=== PATIENT | female | born 1960 | race Caucasian/White ===

== ENCOUNTER 2020-04-01 06:05 | Day surgery (SDC) | payer OTHER ==
[~2020-04-01 06:05] MED LIST: SODIUM CHLORIDE 0.9% 1,000 ML IV SCH
[2020-04-01] MEDS ORDERED: SODIUM CHLORIDE 0.9% 1,000 ML IV ONE (06:31)
[2020-04-01 06:47] LABS: Basophils # (A) 0.1 k/uL (0-0.2); Basophils % (A) 2 %; Eosinophils # (A) 0.3 k/uL (0-0.7); Eosinophils % (A) 6 %; HCT 38.8 % (34.0-46.0); HGB 12.6 gm/dL (11.4-16.0); Lymphocytes # (A) 2.1 k/uL (1.0-4.8); Lymphocytes % (A) 49 %; MCH 31.6 pg (25.0-35.0); MCHC 32.5 g/dL (31.0-37.0); MCV 97.4 fL (80.0-100.0); Mean Platelet Volume 8.6; Monocytes # (A) 0.2 k/uL (0-1.0); Monocytes % (A) 5 %; Neutrophils # (A) 1.5 k/uL (1.3-7.7); Neutrophils % (A) 35 %; Platelet Count 222 k/uL (150-450); RBC 3.99 m/uL (3.80-5.40); RDW 12.9 % (11.5-15.5); WBC 4.3 k/uL (3.8-10.6)
[2020-04-01 07:00] LABS: Calcium 9.6 mg/dL (8.4-10.2); Potassium 3.8 mmol/L (3.5-5.1)
[2020-04-01] MEDS ORDERED: ATROPINE SULFATE 0.1 MG/ML 10ML SYRINGE ONE (07:21)
[2020-04-01] MEDS ORDERED: MIDAZOLAM 2 MG/2 ML VIAL ONE (07:21)
[2020-04-01] MEDS ORDERED: fentaNYL (PF) 50 MCG/ML 2 ML AMP ONE (07:21)
[2020-04-01] MEDS ORDERED: LIDOCAINE 1% INJ 10MG/ML (20 ML MDV) ONE (07:41)
[2020-04-01] MEDS ORDERED: LIDOCAINE 1% INJ 10MG/ML (20 ML MDV) SQ ONE (08:01)
[2020-04-01] MEDS ORDERED: HEPARIN SODIUM (1,000 UNIT/ML) 1,000 UNIT in SODIUM CHLORIDE 0.9% 1,000 ML IRRIGATION ONE (08:08)
--- NOTE | 2020-04-01 10:23 | P.HPCAR ---
History of Present Illness This is Dr. 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 This morning on my assessment she was in a ventricular bigeminy HPI Patient with a long-standing history of palpitations. No syncope no chest discomfort Stress test did not show any evidence for reversible ischemia ROS: No fever chills or rigors, no cough, phlegm or expectoration, no nausea, vomiting or diarrhea, no hematuria, dysuria, no musculoskeletal complaints, no strokes or seizures, no skin lesions. EXAMINATION: Afebrile 98.6F pulse rate in the 60s blood pressure 140/78 mmHg Breath sounds are clear no rhonchi no crackles Normal heart sounds normal S1 normal S2 no murmurs no gallops no rub Abdomen is soft nontender Extremities warm no edema REVIEW OF LABS, ECG & MEDICAL DATA White count 4.3 thousand, hemoglobin 12.6, platelet count 222 thousand Normal electrolytes potassium 3.8 BUN 20 creatinine 0.9 Normal calcium Physical Exam Vitals: Vital Signs Temp Pulse Resp BP Pulse Ox 04/01/20 06:32 98.6 F 62 16 140/78 100 Intake and Output 03/31/20 04/01/20 04/01/20 22:59 06:59 14:59 Intake Total 20 854 Balance 20 854 Intake: IV 20 854 Other: Weight 61.1 kg Past Medical History Past Medical History: Hyperlipidemia, Osteoarthritis (OA), Sleep Apnea/CPAP/BIPAP, Thyroid Disorder Additional Past Medical History / Comment(s): SEE DR MICHELLE'S HISTORY AND PHY BENIGNO FOR CARDIAC HISTORY, 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 History of Any Multi-Drug Resistant Organisms: None Reported Past Surgical History: Back Surgery, Heart Catheterization Additional Past Surgical History / Comment(s): RIGHT ARTHROSCOPIC KNEE SURGERY, AMPUTATION RIGHT GREAT TOE, TOTAL RIGHT HIP , TOLTAL LEFT HIP, L4 L5 LAMINECTOMY, Past Anesthesia/Blood Transfusion Reactions: No Reported Reaction Smoking Status: Former smoker - Past Family History Mother Family Medical History: Cancer Additional Family Medical History / Comment(s): BREAST CANCER Sister(s) Family Medical History: Deep Vein Thrombosis (DVT) Additional Family Medical History / Comment(s): DVT LEG Father Family Medical History: Pulmonary Embolus Physical Examination Vital Signs Temp Pulse Resp BP Pulse Ox 04/01/20 06:32 98.6 F 62 16 140/78 100 Intake and Output 03/31/20 04/01/20 04/01/20 22:59 06:59 14:59 Intake Total 20 854 Balance 854 Intake: IV 854 Other: Weight 61.1 kg Results 04/01/20 06:25 04/01/20 06:25 CBC 04/01/20 Range/Units 06:25 WBC 4.3 (3.8-10.6) k/uL RBC 3.99 (3.80-5.40) m/uL Hgb 12.6 (11.4-16.0) gm/dL Hct 38.8 (34.0-46.0) % Plt Count 222 (150-450) k/uL Comprehensive Metabolic Panel 04/01/20 Range/Units 06:25 Sodium 140 (137-145) mmol/L Potassium 3.8 (3.5-5.1) mmol/L Chloride 106 (98-107) mmol/L Carbon Dioxide 29 (22-30) mmol/L BUN 20 H (7-17) mg/dL Creatinine 0.90 (0.52-1.04) mg/dL Glucose 97 (74-99) mg/dL Calcium 9.6 (8.4-10.2) mg/dL Current Medications Generic Name Dose Route Start Last Admin Trade Name Freq PRN Reason Stop Dose Admin Sodium Chloride 1,000 mls @ 20 mls/hr 04/01/20 05:53 Saline 0.9% IV .Q24H KENZIE Intake and Output 03/31/20 04/01/20 04/01/20 22:59 06:59 14:59 Intake Total 854 Balance 854 Intake: IV 854 Other: Weight 61.1 kg 04/01/20 06:25 04/01/20 06:25
--- NOTE | 2020-04-01 10:24 | P.PRLE ---
RE: Hossein Laughlin Dear Titus Marquezan underwent a diagnostic EP study and successful ablation of septal RVOT PVCs. She is a high PVC burden but when she arrived in the lab she was in [facility] The PVCs was successfully mapped and ablated At this time I would discontinue metoprolol and continue all other medications particularly atorvastatin Thank you for entrusting me with the care of the patient Warm regards Sincerely Delvin Michelle
[2020-04-01] MEDS ORDERED: ACETAMINOPHEN TAB 325 MG TAB PO PRN (10:25)
[2020-04-01] MEDS ORDERED: ATORVASTATIN 40 MG TAB PO SCH (11:00)
--- NOTE | 2020-04-01 11:27 | P.EPPROC ---
- EP Procedure Note Electrophysiology Procedure Note: Diagnosis Very frequent PVCs, palpitations Procedure Diagnostic EP study, mapping and ablation of PVCs, RVOT septum Details of procedure Patient was brought to the EP lab in a fasting state. Written informed consent was obtained prior to the procedure. Sheaths were placed in the right left femoral veins Via these diagnostic catheters placed, mapping cath was replaced intracardiac echo catheter was placed Sinus cycle length 980, QRS 89 QT 453 AH 86 and HV 52 ms Sinus recovery times a 600, 504 100 ms were 1241, 1160 and 793 ms. AV node Wenckebach block 470 ms VA Wenckebach block greater than 590 ms Pacing from the Ash sinus, AV node Wenckebach block for 50 ms Bursts from the right ventricle from 500 ms down to 300 ms performed no VT induced Atropine IV given no other arrhythmias induced Patient had bigeminal PVCs These PVCs had a left bundle branch block morphology upright QRS is in the inferior leads and rS pattern in lead 1 Intracardiac echocardiography was performed tricuspid valve and pulmonic valves were identified and tagged Aortic root and the right coronary cusp and the commissure between the right and left coronary cusps were identified and tagged RVOT was mapped during PVCs, activation mapping, as well as during intracardiac echo 3-D anatomical mapping Activation mapping was performed The septal location was identified Excellent early bipolar signals were noted negative unipolar signals were noted RF ablation was performed at the site With application of manual pressure the PVCs of the suppressed Power of between 30-40 W was used good contact force applied The PVCs were abolished and the patient was left with very occasional septal PVCs Intracardiac echo revealed absence of any pericardial effusion All catheters were then removed and patient. Symmetric telemetry Impression Successful mapping and ablation of PVCs from the RV OT septum. Patient initially had ventricular bigeminy and was left with very occasional PVCs at the end of the procedure Plan Stop metoprolol
[2020-04-01] MEDS: HYDROcodone/APAP 10-325MG 1 EACH TAB PO PRN ×2 (11:46→21:01)
[2020-04-01] MEDS: clonazePAM 0.5 MG TAB PO SCH ×2 (11:55→21:01)
[2020-04-01] MEDS ORDERED: clonazePAM 0.5 MG TAB PO SCH (21:00)
[2020-04-02] MEDS: HYDROcodone/APAP 10-325MG 1 EACH TAB PO PRN (05:44)
[2020-04-02] MEDS ORDERED: LEVOTHYROXINE 88 MCG TAB PO SCH (06:30)
[2020-04-02 08:43] VITALS: BP 136/84; PULSE 65; RESP 14; TEMP 98.2
--- NOTE | 2020-04-02 13:30 | P.DS ---
Providers Attending physician: Delvin Michelle Primary care physician: [facility] Course: Patient is doing well today. No chest discomfort no dizziness lightheadedness no palpitations Groins of healed well. Minimal tenderness in the left side but no hematoma no swelling Extremities warm no edema On examination her vitals are stable Afebrile 98.2F pulse rate in the 70s normal respirations Blood pressure 128/73 mmHg Breath sounds are clear no rhonchi no crackles Normal heart sounds normal S1 normal S2 no murmurs or gallops. Extremities warm no edema Abdomen soft nontender Impression Frequent PVCs, ventricular bigeminy, RVOT, septal focus Status post successful ablation No further PVCs noted overnight Plan Discharge home today in follow-up in the office in 1-2 weeks Instructions given Patient Condition at Discharge: Stable Plan - Discharge Summary Discharge Rx Participant: Yes New Discharge Prescriptions: Discontinued Metoprolol Succinate [Toprol XL] 25 mg PO BID No Action Ferrous Sulfate [Feosol] 325 mg PO DAILY clonazePAM [KlonoPIN] 0.5 mg PO BID HYDROcodone/APAP 10-325MG [[place] 10-325] 1 tab PO Q4-6H PRN PRN Reason: Pain Atorvastatin [Lipitor] 40 mg PO Q48H methocarbamoL [Robaxin] 1,500 mg PO TID Levothyroxine Sodium [Synthroid] 88 mcg PO DAILY Diclofenac Sodium [Voltaren] 75 mg PO BID Misoprostol [Cytotec] 200 mcg PO DAILY Sennosides/Docusate Sodium [Colace 2-in-1 Tablet] 1 each PO DAILY Discharge Medication List Atorvastatin [Lipitor] 40 mg PO Q48H 03/28/20 [History] Diclofenac Sodium [Voltaren] 75 mg PO BID 03/28/20 [History] Ferrous Sulfate [Feosol] 325 mg PO DAILY 03/28/20 [History] HYDROcodone/APAP 10-325MG [[place] 10-325] 1 tab PO Q4-6H PRN 03/28/20 [History] Levothyroxine Sodium [Synthroid] 88 mcg PO DAILY 03/28/20 [History] Misoprostol [Cytotec] 200 mcg PO DAILY 03/28/20 [History] Sennosides/Docusate Sodium [Colace 2-in-1 Tablet] 1 each PO DAILY 03/28/20 [Hist ory] clonazePAM [KlonoPIN] 0.5 mg PO BID 03/28/20 [History] methocarbamoL [Robaxin] 1,500 mg PO TID 03/28/20 [History] Follow up Appointment(s)/Referral(s): Delvin Michelle MD [STAFF PHYSICIAN] - 04/06/20 12:45 pm (Follow-up with Dr. Michelle/Anu Peterson in 2 weeks Stop metoprolol Continue atorvastatin) Patient Instructions/Handouts: Electrophysiology Study (DC) Activity/Diet/Wound Care/Special Instructions: Post EP study - Ablation instructions 1. Keep access sites dry for 2 days. 2. No heavy lifting or straining for 2 days. 3. Avoid bending the hips repeatedly for 2 days. 4. You may go up and down stairs slowly Call if the following is noted 1. Bleeding, increasing swelling or pain at the access sites. 2. Increasing chest discomfort, especially upon taking a deep breath. 3. Increasing shortness of breath, at rest or with exertion. 4. Undue cough / phlegm 5. Difficulty or pain while swallowing. 6. Pain or change in color in the extremities. 7. Fever, chills, rigors. 8. Increasing headache or neurologic symptoms. 9. Dizziness, fainting, palpitations Stop metoprolol Discharge Disposition: HOME SELF-CARE
== END 2020-04-02 11:40 | disposition home or self-care (01) ==
LOC: CATHEP 06:05 → 3NCARDOBS 10:49 → CATHEP 04-02 11:40
PROVIDERS: ATTEND Internal Medicine Clinical Cardiac Electrophysiology
DX: I49.3 Ventricular premature depolarization (principal); I10 Essential (primary) hypertension; E78.5 Hyperlipidemia, unspecified; G47.30 Sleep apnea, unspecified; E07.9 Disorder of thyroid, unspecified; Z79.890 Hormone replacement therapy; Z79.899 Other long term (current) drug therapy; M19.90 Unspecified osteoarthritis, unspecified site; Z99.89 Dependence on other enabling machines and devices; Z98.890 Other specified postprocedural states; Z96.643 Presence of artificial hip joint, bilateral; Z89.411 Acquired absence of right great toe; Z87.891 Personal history of nicotine dependence; Z80.3 Family history of malignant neoplasm of breast; Z82.49 Family history of ischemic heart disease and other diseases of the circulatory system; Z88.8 Allergy status to other drugs, medicaments and biological substances
CPT/HCPCS: 93623; 93662; 93654; 80048; 85025; C1894; C1769 ×2; C1730 ×2; C1759; C1732; J2250; J2001; J0461; J3010; J1644

== ENCOUNTER → 2021-06-14 | Outpatient (CLI) | payer OTHER ==
[2021-06-14 19:00] LABS: HCT 35.4 % (37.2-46.3); HGB 11.2 g/dL (12.0-15.0); MCH 31.3 pg (27.0-32.0); MCHC 31.6 g/dL (32.0-37.0); MCV 98.9 fL (80.0-97.0); Mean Platelet Volume 11.8 fL (9.5-12.2); Platelet Count 218 X 10*3/uL (140-440); RBC 3.58 X 10*6/uL (4.10-5.20); WBC 4.36 X 10*3/uL (4.50-10.00)
[2021-06-14 19:05] LABS: African American GFR (CKD) 61.6 (60.0-200.0); Anion Gap 10.7 mmol/L (10.00-18.00); Blood Urea Nitrogen 20.5 mg/dL (9.0-27.0); Carbon Dioxide 23.6 mmol/L (20.0-27.5); Non-African American GFR(CKD) 53.2 (60.0-200.0); Potassium 4.2 mmol/L (3.5-5.5)
== END | disposition home or self-care (01) ==
LOC: LABPAT 08:39
PROVIDERS: ATTEND Internal Medicine Clinical Cardiac Electrophysiology
DX: Z01.812 Encounter for preprocedural laboratory examination (principal); I49.3 Ventricular premature depolarization
CPT/HCPCS: 80051; 82565; 84520; 85027; U0003

== ENCOUNTER 2021-06-17 13:38 | Inpatient (IN) | payer OTHER ==
[2021-06-12 09:07] VITALS: BMI 21.5
[~2021-06-17 13:38] MED LIST changes: +LACTATED RINGERS 1,000 ML IV SCH
[2021-06-17] MEDS ORDERED: SODIUM CHLORIDE 0.9% 1,000 ML IV ONE (14:01)
[2021-06-17] MEDS ORDERED: fentaNYL (PF) 50 MCG/ML 2 ML AMP ONE (15:21)
[2021-06-17] MEDS ORDERED: MIDAZOLAM 2 MG/2 ML VIAL ONE (15:21)
[2021-06-17] MEDS ORDERED: HEPARIN SODIUM,PORCINE 10,000 UNIT/ML 1 ML VIAL ONE (15:21)
[2021-06-17] MEDS ORDERED: PROTAMINE SULFATE 10 MG/ML 5 ML VIAL IV ONE (15:21)
[2021-06-17] MEDS ORDERED: PROPOFOL 10 MG/ML 20 ML VIAL IV ONE (15:21)
[2021-06-17] MEDS ORDERED: SODIUM CHLORIDE 0.9% 100 ML BAG ONE (15:21)
[2021-06-17] MEDS ORDERED: ceFAZolin 1,000 MG VIAL ONE (15:21)
[2021-06-17] MEDS ORDERED: LIDOCAINE 1% INJ 10MG/ML (20 ML MDV) ONE ×3 (15:24→19:07)
--- NOTE | 2021-06-17 15:50 | P.EPPROC ---
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 QRS width of greater than 200 ms CHF exacerbation requiring hospitalization Mild CAD, single vessel ostial Procedure Biventricular ICD implant Details Patient was brought to the EP lab in a fasting state. Written informed consent was obtained prior to the procedure. Conscious sedation provided by anesthesia team IV antibiotics administered. Local anesthesia administered. A 4 cm incision made in the pectoral area. Subfascial pocket made. Venous access obtained Venous sheaths placed. Leads placed in the right heart Atrial lead position the right atrial appendage. Medtronic model #5076, 52 cm in length active fix lead P waves 2.5 mV pacing impedance 532 ohms and pacing threshold 0.5 V at 0.4 ms RV lead position in the RV apex. Medtronic ICD lead model #6930 5M, 62 cm in length screwed in the mid RV septum R waves 20 mV pacing impedance 532 ohms pacing threshold 0.5 V at 0.4 ms LV lead positioned in the LV vein. Coronary sinus was extremely difficult to access. However successfully accessed. Venogram performed LV veins identified. Sheaths placed distally in the CS As the venogram balloon catheter was removed the sheath came out of the CS completely CS the accessed again with some difficulty Multiple different sheaths used access Inner, subselecting sheath used access the lateral vein without success Extremely large left ventricle History of placed His bundle lead screwed in the His bundle area successfully despite obtained Selective capture obtained Narrowing of the left bundle branch block pattern from > 200 ms down to 174 ms Thresholds less than 1 V at 1 ms Stable lead Lead secured to the underlying pectoralis muscle and collected to the Bi V ICD Medtronic model number [id number] DR Mahendra RIGGINS MRI Wound closed in 3 layers and dressed per protocol Impression Successful His bundle by ventricular ICD with narrowing of the QRS to 176 ms from greater than 200 ms If there is no improvement in heart failure, consideration for an epicardial lead with HIS facilitated LV pacing
[2021-06-17] MEDS ORDERED: HEPARIN SOD,PORK IN 0.45% NACL 25,000 UNIT in 0.45% NACL 1 250ML.BAG IV ONE (16:00)
[2021-06-17] MEDS ORDERED: LIDOCAINE 1% INJ 10MG/ML (20 ML MDV) SQ ONE ×3 (16:08→18:56)
[2021-06-17] MEDS ORDERED: HEPARIN SODIUM (1,000 UNIT/ML) 1,000 UNIT in SODIUM CHLORIDE 0.9% 1,000 ML IRRIGATION ONE (19:02)
[2021-06-17] MEDS ORDERED: ACETAMINOPHEN TAB 325 MG TAB PO PRN (19:48)
[2021-06-17] MEDS ORDERED: HYDROmorphone 0.5 MG/0.5 ML SYRINGE IVP PRN (19:51)
[2021-06-17] MEDS ORDERED: ACETAMINOPHEN IV (For NPO) 1,000 MG in EMPTY BAG 1 BAG IVPB ONE (20:00)
--- NOTE | 2021-06-17 20:14 | P.EPPROC ---
- EP Procedure Note Electrophysiology Procedure Note: Diagnosis Frequent outflow tract PVCs, greater than 20% PVC burden of new onset Past history of septal RVOT PVC ablation several years back successful Result PVCs originating from the LVOT, in juxtaposition to the commissure between the left and right coronary cusps Transient suppression of PVCs during RF ablation from the LVOT just beyond the commissure No suppression with RF delivered at the commissure from the aortic side No suppression from the RVOT under the septal pulmonic valve in juxtaposition to the commissure between LCC and RCC Both the bipolar and the unipolar electrograms were never earlier than the onset of the PVC RF delivered at the site where the bipolar and unipolar electrograms were on time with the onset of the PVC PVC has a broad onset in lead 1 Details Patient was brought to the EP lab in a fasting state. Written informed consent was obtained prior to the procedure. 2 venous sheaths were placed in the left femoral veins An arterial sheath was placed in the right femoral artery. This was a long sheath and was positioned in the aorta Hemodynamic monitoring was performed. Blood pressure were monitored during the EP study prior intra-arterial catheter Diagnostic catheters were placed in the aortic root, LV, coronary sinus and right ventricle Patient had PVCs originating from the LVOT Initial broad/tall R wave in lead V1 with early transition Initial broad R wave in lead 1 Upright in the inferior leads, delayed onset Sinus cycle length 953 ms, TX interval 163, QRS 148 and QT 449 HV interval 58 ms CS pacing was performed CS catheter was advanced as far as possible anteriorly However the intracardiac ventricular signals on the distal most CS point were late compared to the onset of the QRS Sinus recovery times at 605 100 ms were 1610 and 1310 ms mildly prolonged corrected sinus node recovery times Intracardiac echo was performed. The aortic root, the aortic cusps and the left main was identified and 3-D mapped LV and RV were mapped The RV OT and the LVOT were mapped A Pentaray catheter was used to map the PVCs within the aortic cusps However the ventricular electrograms were late as compared to the PVC onset The Pentaray catheter was then placed in the LVOT and the left ventricle. However catheter induced PVCs were frequently noted, interfering with mapping An irrigated tip RF ablation catheter was then used to map the LVOT The LVOT area and the right and left coronary cusps especially the commissure area were mapped in detail The earliest electrograms were obtained on the ventricular side of the commissure between LCC and RCC However were at best on time with the onset of the QRS, never earlier Later the RVOT was also mapped under the septal pulmonic leaflet and the ventricular electrograms were late compared to the onset of the QRS of the PVC RF ablation was applied in the LVOT area just beyond the cusp RF ablation was also applied in the commissure in juxtaposition to this area RF ablation was also applied to the RVOT, just under the septal pulmonic valve, in juxtaposition to the commissure Transient suppression of PVCs was noted only in the LVOT ablations Good stability and power was used Power between 20-30 W was applied However only transient success was noted consistent with a deep focus based on the unipolar and bipolar electrograms that never preceded the onset of the PVC At the end of the procedure WAS removed Angio-Seal was applied to the arterial site Vascade was applied to the venous punctures Hemostasis was achieved Intracardiac echo revealed no pericardial effusion and no fluid around the aortic cusp and root Left main appeared patent on ICE imaging of patient under the procedure well without acute competitions
[2021-06-17] MEDS ORDERED: ASPIRIN 81 MG PO STA (20:43)
[2021-06-17] MEDS: FLECAINIDE 50 MG TAB PO SCH (20:44)
[2021-06-17] MEDS: clonazePAM 0.5 MG TAB PO SCH (20:44)
[2021-06-17] MEDS ORDERED: ASPIRIN 325 MG TAB PO SCH (21:00)
[2021-06-17] MEDS: ONDANSETRON 4 MG/2 ML VIAL IVP PRN (22:03)
[2021-06-17] MEDS: HYDROcodone/APAP 10-325MG 1 EACH TAB PO PRN (22:06)
[2021-06-17] MEDS: HYDROmorphone 1 MG/ML 1 ML SYRINGE IVP PRN (23:50)
[2021-06-18 00:13] LABS: Basophils % (A) 0 %; Eosinophils % (A) 0 %; HCT 32.6 % (34.0-46.0); HGB 10.7 gm/dL (11.4-16.0); Lymphocytes # (A) 0.7 k/uL (1.0-4.8); Lymphocytes % (A) 8 %; MCH 32.8 pg (25.0-35.0); MCHC 32.8 g/dL (31.0-37.0); MCV 100.2 fL (80.0-100.0); Mean Platelet Volume 8.6; Monocytes # (A) 0.4 k/uL (0-1.0); Monocytes % (A) 5 %; Neutrophils # (A) 7.5 k/uL (1.3-7.7); Neutrophils % (A) 86 %; Platelet Count 181 k/uL (150-450); RBC 3.25 m/uL (3.80-5.40); RDW 12.6 % (11.5-15.5); WBC 8.7 k/uL (3.8-10.6)
[2021-06-18] MEDS: LEVOTHYROXINE 88 MCG TAB PO SCH (02:55)
[2021-06-18] MEDS: HYDROmorphone 1 MG/ML 1 ML SYRINGE IVP PRN ×4 (04:26→21:44)
[2021-06-18] MEDS: miSOPROStoL 200 MCG TAB PO SCH (06:07)
[2021-06-18] MEDS: FLECAINIDE 50 MG TAB PO SCH ×2 (06:07→21:41)
[2021-06-18] MEDS: HYDROcodone/APAP 10-325MG 1 EACH TAB PO PRN (06:08)
[2021-06-18] MEDS: ATORVASTATIN 40 MG TAB PO SCH (06:08)
[2021-06-18] MEDS: clonazePAM 0.5 MG TAB PO SCH ×2 (06:09→21:41)
[2021-06-18 06:21] LABS: Basophils % (A) 0 %; Eosinophils % (A) 0 %; HCT 31.4 % (34.0-46.0); HGB 10.3 gm/dL (11.4-16.0); Lymphocytes # (A) 1.2 k/uL (1.0-4.8); Lymphocytes % (A) 19 %; MCH 32.8 pg (25.0-35.0); MCHC 32.7 g/dL (31.0-37.0); MCV 100.4 fL (80.0-100.0); Monocytes # (A) 0.3 k/uL (0-1.0); Monocytes % (A) 5 %; Neutrophils # (A) 4.9 k/uL (1.3-7.7); Neutrophils % (A) 75 %; Platelet Count 177 k/uL (150-450); RBC 3.13 m/uL (3.80-5.40); RDW 12.4 % (11.5-15.5); WBC 6.6 k/uL (3.8-10.6)
--- NOTE | 2021-06-18 11:44 | US ---
EXAMINATION TYPE: US lower ext pseudo artery RT DATE OF EXAM: 06/18/2021 COMPARISON: NONE CLINICAL HISTORY: rule out psuedo. EXAM PERFORMED: Grayscale and color Doppler duplex imaging performed of the groin, post cardiac philomena ter to assess for pseudoaneurysm. SIDE PERFORMED: right Color and Waveform Doppler performed to assess for the presence of pseudoaneurysm; Is there ultrasound evidence of a pseudoaneurysm: yes Is there evidence of AV shunting: no Is there a fluid collection present: no IMPRESSION: Pseudoaneurysm measuring 5.0 x 2.9 x 2.5cm Neck appears wide.
[2021-06-18] MEDS ORDERED: NALOXONE 0.4 MG/ML 1 ML VIAL IVP PRN (12:48)
[2021-06-18] MEDS ORDERED: SODIUM CHLORIDE 0.9% 1,000 ML in EMPTY BAG 1 BAG IV SCH (13:00)
--- NOTE | 2021-06-18 13:00 | P.PCN ---
Date of Procedure: 06/18/21 Operative Findings: PERCUTANEOUS PERIPHERAL INTERVENTION Performing physician Javier Arguello M.D. Procedure performed #1 successful balloon angioplasty of the right renal artery using 5.0 x 30 mm balloon with an excellent angiographic results #2 intravascular ultrasound (IVUS) of the right renal artery #3 selective right renal artery angiogram #4 an abdominal aortogram #5 ultrasound guided access of the right common femoral artery Indication This is a 60-year-old female patient who sees Dr. Michelle regularly who was a diagnosed recently with resistant hypertension. The patient was on 3 blood pressure medications including diuretics. 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 She was brought today for further clarification and possible ARABIC TRANSLATOR. Approach Right common femoral artery Complication None Level of sedation Moderate with a sedation length of 84 minutes Procedure description After obtaining an informed consent the patient was brought to the cardiac cardiac cath tech. The right common femoral artery was cannulated using puncture technique under ultrasound guidance, the micropuncture wire passed easily then I placed a 5- Brazilian sheath in the right common femoral artery. Subsequently the 5-Brazilian sh eath was upgraded into 6-Brazilian sheath during the procedure. Subsequently I did an abdominal aortogram using 5-Brazilian pigtail catheter which was placed in the abdominal aorta and that was performed using a power injection under digital subselection. After that I did selective right renal artery using renal double curved catheter and that was a 6-Brazilian catheter. To do that I had to. My 5-Brazilian sheath into 6-Brazilian sheath. 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 To assess if the lesion isn't flow-limiting or no I did wire it using an 014 wire and I did after that intravascular ultrasound and that revealed 2 spots of high-grade stenosis exceeding 80%. Because of that I decided to do balloon angioplasty. I performed and balloon angioplasty lesion using 4.5 mm and subsequently 5.5 mm. The final angiogram showed excellent angiographic results and the procedure was completed without any complications By the end I did selective right common femoral artery angiogram before I deployed a 1. Close to achieve good hemostasis. The procedure was completed without any complications Postprocedure management #1 dual antiplatelet therapy #2 aggressive cholesterol control #3 continue monitoring the blood pressure and assess the need to drop any of the blood pressure medication #4 follow-up with Dr. Michelle as an outpatient
[2021-06-18 13:24] LABS: Glucose,Whole Blood 123 mg/dL (75-99)
--- NOTE | 2021-06-18 14:10 | CT ---
EXAMINATION TYPE: CT abdomen pelvis wo con DATE OF EXAM: 06/18/2021 COMPARISON: None HISTORY: 60-year-old female Rule out retroperitoneal bleeding. Pain. CT DLP: 809 mGycm. Automated exposure control for dose reduction was used. TECHNIQUE: Contiguous axial scanning of the abdomen and pelvis without IV contrast. Coronal and sagit hawk reconstructions performed. FINDINGS: Heart normal size without pericardial effusion. Pleural-based calcifications at the left base and either chronic subpleural volume loss or pleural th ickening at the costophrenic angles. No pleural effusion. Noncontrast appearance of the liver, adrenal glands, kidneys, spleen, pancreas show no gross abnormal ity. Mild to moderate prostatic calcifications infrarenal abdominal aorta without aneurysm. Some sludge within the nondistended gallbladder. No dilated small bowel or free air. The cecum is displaced over to the right secondary to extensive right-sided retroperitoneal and extra peritoneal hematoma that begins in the pelvis and extends up along the intra-abdominal right flank co ncurrently thickening the right rectus abdominis and slightly thickening the right lateral abdominal wall musculature. In the pelvis, hematoma measures up to 9.9 cm wide by 9.3 cm AP. Overall craniocaud al measurement of 18.6 cm. Hematoma likely arising from the upper femoral neurovascular bundle, axial image 39. Extensive streak and beam hardening artifact relating to the patient's bilateral total hip arthroplas ties limits visualization of pelvic structures. There is a Gonsalez catheter collapse in the bladder. Mi ld to moderate pelvic ascites. Bones: Marked facet arthropathy mid to lower lumbar spine. Grade 1, nearly grade 2 anterolisthesis L2 -L3. Advanced degenerative disc disease L2-L5 levels. IMPRESSION: Exam positive for fairly extensive right-sided retroperitoneal/extraperitoneal hematoma extending fro m the right side of the pelvis up to the level of the lower pole of the right kidney (nearly 19 cm cr aniocaudal and measuring 10 cm wide in the pelvis). Hemorrhage thickens the right rectus abdominis an d slightly thickens the right lateral abdominal wall musculature.
--- NOTE | 2021-06-18 15:09 | P.GSCN ---
History of Present Illness Consult date: 06/18/21 Reason for Consult: retroperitoneal hematoma, rectus sheath hematoma, pseudoaneurysm right groin Requesting physician: Javier Arguello History of present illness: post groin catheterization patient with abnormal ct, pseudoaneursym appears wide mouthed. Evidence of intraabdominal bleeding, defer thrombin treatment percutaneously by u/s guidance, recommend vascular surgery consult Past Medical History Past Medical History: Hyperlipidemia, Osteoarthritis (OA), Sleep Apnea/CPAP/BIP AP, Thyroid Disorder Additional Past Medical History / Comment(s): SEE DR CHAMBERS'S HISTORY AND PHYSICAL FOR CARDIAC HISTORY, 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. Need Left shoulder surgery Roto cu ff tear abd right knee replacement. IRREGULAR HEART BEAT History of Any Multi-Drug Resistant Organisms: None Reported Past Surgical History: Back Surgery, Breast Surgery, Cardiac Ablation, EPS, Heart Catheterization, Orthopedic Surgery Additional Past Surgical History / Comment(s): RIGHT ARTHROSCOPIC KNEE SURGERY, AMPUTATION RIGHT GREAT TOE, CELE-BILAT, L4 L5 LAMINECTOMY, Right breast biopsy. Node removed from vocal cord, LT ROTATOR CUFF REPAIR Past Anesthesia/Blood Transfusion Reactions: No Reported Reaction Past Psychological History: Anxiety, Panic Disorder Additional Psychological History / Comment(s): PANIC ATTACK ON OCCASION Smoking Status: Former smoker Past Alcohol Use History: None Reported Additional Past Alcohol Use History / Comment(s): STARTED SMOKING AT AGE 7 QUIT AGE 35 SMOKED 2PPD. QUIT DRINKING ALCOHOL IN 1990 - [place] Past Drug Use History: Cocaine, Marijuana Additional Drug Use History / Comment(s): PCP, [facility] MUSHROOMS- IN THE PAST - Past Family History Mother Family Medical History: Cancer Additional Family Medical History / Comment(s): BREAST CANCER Sister(s) Family Medical History: Deep Vein Thrombosis (DVT) Additional Family Medical History / Comment(s): DVT LEG Father Family Medical History: Pulmonary Embolus Medications and Allergies Home Medications Medication Instructions Recorded Confirmed Type Atorvastatin [Lipitor] 40 mg PO DAILY 03/28/20 06/17/21 History Diclofenac Sodium [Voltaren] 75 mg PO BID 03/28/20 06/17/21 History Ferrous Sulfate [Feosol] 325 mg PO DAILY 03/28/20 06/17/21 History HYDROcodone/APAP 10-325MG [[place] 1 tab PO Q4-6H PRN 03/28/20 06/17/21 History 10-325] Levothyroxine Sodium [Synthroid] 88 mcg PO DAILY 03/28/20 06/17/21 History Misoprostol [Cytotec] 200 mcg PO DAILY 03/28/20 06/17/21 History Sennosides/Docusate Sodium [Colace 1 each PO DAILY 03/28/20 06/17/21 History 2-in-1 Tablet] clonazePAM [KlonoPIN] 0.5 mg PO BID 03/28/20 06/17/21 History tiZANidine [Zanaflex] 2 mg PO Q8HR PRN 06/12/21 06/17/21 History Aspirin EC [Ecotrin] 325 mg PO DAILY #30 tab 06/17/21 Rx Flecainide [Tambocor] 50 mg PO Q12HR #90 tablet 06/17/21 Rx Allergies Allergy/AdvReac Type Severity Reaction Status Date / Time adhesive tape Allergy SKIN PEELS Verified 06/17/21 14:00 cyclobenzaprine Allergy Nausea & Verified 06/17/21 14:00 [From Flexeril] Vomiting Surgical - Exam Vital Signs Temp Pulse Resp BP Pulse Ox 97.8 F 85 16 135/88 97 06/17/21 14:09 06/17/21 14:09 06/17/21 14:09 06/17/21 14:09 06/17/21 14:09 Results - Labs 06/18/21 05:39 Abnormal Lab Results - Last 24 Hours (Table) 06/17/21 06/18/21 06/18/21 Range/Units 23:57 05:39 13:04 RBC 3.25 L 3.13 L (3.80-5.40) m/uL Hgb 10.7 L 10.3 L (11.4-16.0) gm/dL Hct 32.6 L 31.4 L (34.0-46.0) % MCV 100.2 H 100.4 H (80.0-100.0) fL Lymphocytes # 0.7 L (1.0-4.8) k/uL POC Glucose (mg/dL) 123 H (75-99) mg/dL
--- NOTE | 2021-06-18 15:12 | P.CRDCN ---
History of Present Illness Consult date: 06/18/21 Chief complaint: Right groin discomfort History of present illness: This is a very pleasant 60-year-old female patient was admitted yesterday by Dr. Michelle and underwent an electrophysiology procedure. The procedure was PVC ablation which was performed from the right and left groin. The patient had an arterial sheath in the right groin and the venous sheath in the left groin. The procedure itself was uneventful. Postprocedure the patient was experiencing right groin discomfort. There was some concern regarding retroperitoneal bleeding and for that reason I was asked to see the patient. The patient was seen and examined and evaluated this morning. When she was seen she was experiencing right groin tenderness and on examination she has a right groin bruit noted. The groin was extremely tender. There was also tenderness in the right lower abdominal wall. For that reason I ordered computed tomography scan of the abdomen and pelvis without contrast to assess for abdominal wall hematoma and also an ultrasound of the right groin to rule out pseudoaneurysm. The computed tomography scan of the abdomen and pelvis without contrast came in to be positive for large RV bleeding measured about 20 x 10 cm in diameter. The ultrasound of the groin revealed evidence of pseudoaneurysm. The patient remains hemodynamically stable and her pressure did not drop significantly. Her main complaint is abdominal discomfort as well as the right groin discomfort. Beside that she is not tachycardic. And regarding the pseudoaneurysm going to obtain a consult from the interventional radiologist for possible either compression or thrombin injection. Meanwhile we will continue monitor the CBC on daily basis. If we noticed that the pressure started trending down the patient might benefit from bring her back down to [facility] and go from the other side and try to place a covered stent to seal the area of bleeding. Otherwise I would recommend conservative medical approach at this point and consult interventional radiology. Otherwise the patient is not reporting any chest pain or chest discomfort or shortness of breath. Since yesterday hemoglobin dropped only about 1 g and the most recent hemoglobin was 10.3. Past Medical History Past Medical History: Hyperlipidemia, Osteoarthritis (OA), Sleep Apnea/CPAP/BIPAP, Thyroid Disorder Additional Past Medical History / Comment(s): SEE DR MICHELLE'S HISTORY AND PHYSICAL FOR CARDIAC HISTORY, 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. Need Left shoulder surgery Roto cuff tear abd right knee replacement. IRREGULAR HEART BEAT History of Any Multi-Drug Resistant Organisms: None Reported Past Surgical History: Back Surgery, Breast Surgery, Cardiac Ablation, EPS, Heart Catheterization, Orthopedic Surgery Additional Past Surgical History / Comment(s): RIGHT ARTHROSCOPIC KNEE SURGERY, AMPUTATION RIGHT GREAT TOE, CELE-BILAT, L4 L5 LAMINECTOMY, Right breast biopsy. Node removed from vocal cord, LT ROTATOR CUFF REPAIR Past Anesthesia/Blood Transfusion Reactions: No Reported Reaction Past Psychological History: Anxiety, Panic Disorder Additional Psychological History / Comment(s): PANIC ATTACK ON OCCASION Smoking Status: Former smoker Past Alcohol Use History: None Reported Additional Past Alcohol Use History / Comment(s): STARTED SMOKING AT AGE 7 QUIT AGE 35 SMOKED 2PPD. QUIT DRINKING ALCOHOL IN 1990 - [place] Past Drug Use History: Cocaine, Marijuana Additional Drug Use History / Comment(s): PCP, [facility] MUSHROOMS- IN THE PAST - Past Family History Mother Family Medical History: Cancer Additional Family Medical History / Comment(s): BREAST CANCER Sister(s) Family Medical History: Deep Vein Thrombosis (DVT) Additional Family Medical History / Comment(s): DVT LEG Father Family Medical History: Pulmonary Embolus Medications and Allergies Home Medications Medication Instructions Recorded Confirmed Type Atorvastatin [Lipitor] 40 mg PO DAILY 03/28/20 06/17/21 History Diclofenac Sodium [Voltaren] 75 mg PO BID 03/28/20 06/17/21 History Ferrous Sulfate [Feosol] 325 mg PO DAILY 03/28/20 06/17/21 History HYDROcodone/APAP 10-325MG [[place]pherd 1 tab PO Q4-6H PRN 03/28/20 06/17/21 History 10-325] Levothyroxine Sodium [Synthroid] 88 mcg PO DAILY 03/28/20 06/17/21 History Misoprostol [Cytotec] 200 mcg PO DAILY 03/28/20 06/17/21 History Sennosides/Docusate Sodium [Colace 1 each PO DAILY 03/28/20 06/17/21 History 2-in-1 Tablet] clonazePAM [KlonoPIN] 0.5 mg PO BID 03/28/20 06/17/21 History tiZANidine [Zanaflex] 2 mg PO Q8HR PRN 06/12/21 06/17/21 History Aspirin EC [Ecotrin] 325 mg PO DAILY #30 tab 06/17/21 Rx Flecainide [Tambocor] 50 mg PO Q12HR #90 tablet 06/17/21 Rx Allergies Allergy/AdvReac Type Severity Reaction Status Date / Time adhesive tape Allergy SKIN PEELS Verified 06/17/21 14:00 cyclobenzaprine Allergy Nausea & Verified 06/17/21 14:00 [From Flexeril] Vomiting Physical Exam Vitals: Vital Signs Temp Pulse Resp BP BP Pulse Ox 06/18/21 13:20 98.5 F 56 L 18 95/52 97 06/18/21 13:03 82 16 91/56 95 06/18/21 12:48 98.5 F 56 L 16 95/52 97 06/18/21 07:00 98.2 F 83 18 100/65 100 06/18/21 01:41 98.0 F 96 16 106/64 100 06/17/21 20:03 97.5 F L 58 L 16 170/78 99 Intake and Output 06/18/21 06/18/21 06/18/21 06:59 14:59 22:59 Intake Total 240 Output Total 720 Balance -720 240 Intake: Oral 240 Output: Urine 720 Other: Voiding Method Indwelling Catheter Indwelling Catheter # Voids 2 - Constitutional General appearance: no acute distress - Respiratory Respiratory: bilateral: CTA - Cardiovascular Rhythm: regular Heart sounds: normal: S1, S2 Results 06/18/21 05:39 CBC 06/17/21 06/18/21 Range/Units 23:57 05:39 WBC 8.7 6.6 (3.8-10.6) k/uL RBC 3.25 L 3.13 L (3.80-5.40) m/uL Hgb 10.7 L 10.3 L (11.4-16.0) gm/dL Hct 32.6 L 31.4 L (34.0-46.0) % Plt Count 181 177 (150-450) k/uL Current Medications Generic Name Dose Route Start Last Admin Trade Name Freq PRN Reason Stop Dose Admin Acetaminophen 650 mg 06/17/21 19:48 Acetaminophen Tab 325 Mg Tab PO Q6HR PRN Mild Pain Hydrocodone Bitart/Acetaminophen 1 each 06/17/21 19:49 06/18/21 06:08 Hydrocodone/Apap 10-325mg 1 Each Tab PO 1 each Q4H PRN Administration Pain Atorvastatin Calcium 40 mg 06/18/21 09:00 06/18/21 06:08 Atorvastatin 40 Mg Tab PO 40 mg DAILY KENZIE Administration Clonazepam 0.5 mg 06/17/21 21:00 06/18/21 06:09 Clonazepam 0.5 Mg Tab PO 0.5 mg BID KENZIE Administration Flecainide Acetate 50 mg 06/17/21 21:00 06/18/21 06:07 Flecainide 50 Mg Tab PO 50 mg Q12HR KENZIE Administration Hydromorphone HCl 1 mg 06/17/21 23:29 06/18/21 10:45 Hydromorphone 1 Mg/Ml 1 Ml Syringe IVP 1 mg Q4HR PRN Administration Pain Levothyroxine Sodium 88 mcg 06/18/21 06:30 06/18/21 02:55 Levothyroxine 88 Mcg Tab PO 88 mcg DAILY@0630 KENZIE Administration Misoprostol 200 mcg 06/18/21 09:00 06/18/21 06:07 Misoprostol 200 Mcg Tab PO 200 mcg DAILY KENZIE Administration Ondansetron HCl 4 mg 06/17/21 21:41 06/17/21 22:03 Ondansetron 4 Mg/2 Ml Vial IVP 4 mg Q6HR PRN Administration Nausea And Vomiting Sodium Chloride 12 ml 06/17/21 21:00 06/18/21 06:09 Sodium Chloride 0.9% Flush 10 Ml Syringe IV 12 ml Q12HR KENZIE Administration Intake and Output 06/18/21 06/18/21 06/18/21 06:59 14:59 22:59 Intake Total 240 Output Total 720 Balance -720 240 Intake: Oral 240 Output: Urine 720 Other: Voiding Method Indwelling Catheter Indwelling Catheter # Voids 2 06/18/21 05:39 Assessment and Plan Assessment: Assessment #1 right groin tenderness concerning for pseudoaneurysm #2 right lower abdominal discomfort concerning for abdominal wall hematoma #3 status post an electrophysiology procedure from right and left groin with arterial access from the right groin Plan #1 continue conservative medical approach at this point #2 monitor the blood pressure very closely #3 hold any blood pressure medications #4 obtain a computed tomography scan of the abdomen and pelvis #5 obtain an ultrasound of the right groin #6 further recommendation to follow
[2021-06-18 16:54] LABS: Glucose,Whole Blood 120 mg/dL (75-99)
--- NOTE | 2021-06-18 17:17 | P.PN ---
Progress Note - Text Progress Note Date: 06/18/21 Reviewed chart and events. CT demonstrates rectus hematoma and ultrasound demonstrates pseudoaneurysm. Vital signs on chart are stable. Awaiting repeat labs (cbc). Recommend pressure dressing to the groin area and repeat ultrasound in the am. If patient becomes hypotensive or hemoglobin drops then would recommend to transfuse.
[2021-06-18 17:24] LABS: HCT 28.7 % (34.0-46.0); HGB 9.4 gm/dL (11.4-16.0); MCH 33.1 pg (25.0-35.0); MCHC 32.8 g/dL (31.0-37.0); MCV 101.1 fL (80.0-100.0); Mean Platelet Volume 8.5; Platelet Count 166 k/uL (150-450); RBC 2.84 m/uL (3.80-5.40); RDW 12.6 % (11.5-15.5); WBC 5.9 k/uL (3.8-10.6)
[2021-06-18 20:16] LABS: Basophils % (A) 1 %; Eosinophils # (A) 0.1 k/uL (0-0.7); Eosinophils % (A) 2 %; HCT 27.9 % (34.0-46.0); HGB 9.1 gm/dL (11.4-16.0); Lymphocytes # (A) 1.9 k/uL (1.0-4.8); Lymphocytes % (A) 31 %; MCH 32.9 pg (25.0-35.0); MCHC 32.6 g/dL (31.0-37.0); Mean Platelet Volume 8.5; Monocytes # (A) 0.4 k/uL (0-1.0); Monocytes % (A) 7 %; Neutrophils # (A) 3.6 k/uL (1.3-7.7); Neutrophils % (A) 58 %; Platelet Count 157 k/uL (150-450); RBC 2.76 m/uL (3.80-5.40); RDW 12.7 % (11.5-15.5); WBC 6.2 k/uL (3.8-10.6)
[2021-06-18 20:28] LABS: Calcium 8.4 mg/dL (8.4-10.2); Potassium 3.7 mmol/L (3.5-5.1)
[2021-06-19] MEDS: HYDROcodone/APAP 10-325MG 1 EACH TAB PO PRN ×3 (00:57→20:10)
[2021-06-19] MEDS: HYDROmorphone 1 MG/ML 1 ML SYRINGE IVP PRN ×5 (02:00→23:43)
[2021-06-19] MEDS: LEVOTHYROXINE 88 MCG TAB PO SCH (03:33)
[2021-06-19] MEDS: miSOPROStoL 200 MCG TAB PO SCH (06:43)
[2021-06-19] MEDS: ATORVASTATIN 40 MG TAB PO SCH (06:43)
[2021-06-19] MEDS: FLECAINIDE 50 MG TAB PO SCH ×2 (06:43→20:11)
[2021-06-19] MEDS: clonazePAM 0.5 MG TAB PO SCH ×2 (06:43→20:10)
--- NOTE | 2021-06-19 07:26 | P.PN ---
Subjective Progress Note Date: 06/19/21 PROGRESS NOTE The patient underwent VT ablation by Dr. Michelle on June 17, she subsequently complained of right groin discomfort and abdominal pain was found to have pseudoaneurysm and evidence of right sided retroperitoneal and extraperitoneal hematoma extending from the right side of the pelvis to the lower pole of the right kidney with hemorrhage of the right rectus abdominis. She was seen by Dr. Garrett. He recommended compression to the groin repeat ultrasound in the morning. She is complaining of abdominal discomfort and right groin discomfort. She denies any chest discomfort or dyspnea. She continues to be in sinus mechanism. Hemodynamically she is stable. She has no evidence of malignant arrhythmia. PHYSICAL EXAMINATION: Blood pressure [133/70] heart rate [73] LUNGS: [Clear to auscultation] HEART: [Regular rate and rhythm, S1, S2. No S3. Systolic murmur at the base] ABDOMEN: [Soft, moderate tenderness more on the right side] EXTREMETIES: [No edema, discomfort in the right groin with evidence of hematoma] LAB: Hemoglobin 9.1, platelets 157, BUN and creatinine 17 and 0.94 IMPRESSION: 1. [ Status post VT ablation] 2. [ Pseudoaneurysm of the right groin with retroperitoneal hematoma] 3. [ History of hyperlipidemia] 4. [ History of hypertension] PLAN: Continue close observation, follow hemoglobin. Await further input from vascular surgery. Hold beta blockers at this time. Depending on her progress further recommendations will be made regarding the need to undergo surgical repair. Objective - Vital Signs Vital signs: Vital Signs Temp 97.8 F 06/19/21 04:00 Pulse 73 06/19/21 05:00 Resp 12 06/19/21 05:00 BP 133/74 06/19/21 05:00 Pulse Ox 99 06/19/21 05:00 Intake & Output 06/18/21 06/19/21 06/19/21 18:59 06:59 18:59 Intake Total 240 1155 Output Total 500 Balance 240 655 Weight 70 kg Intake: IV 955 Sodium Chloride 0.9% 1, 955 000 ml In Empty Bag 1 bag @ 75 mls/hr IV .[id number] KENZIE Rx#:[id number] Oral 240 200 Output: Urine 500 Other: Voiding Method Indwelling Catheter # Voids 2 - Labs CBC & Chem 7: 06/18/21 20:03 06/18/21 20:03 Labs: Abnormal Lab Results - Last 24 Hours (Table) 06/18/21 06/18/21 06/18/21 Range/Units 13:04 16:52 16:54 RBC 2.84 L (3.80-5.40) m/uL Hgb 9.4 L (11.4-16.0) gm/dL Hct 28.7 L (34.0-46.0) % MCV 101.1 H (80.0-100.0) fL Glucose (74-99) mg/dL POC Glucose (mg/dL) 123 H 120 H (75-99) mg/dL 06/18/21 06/18/21 Range/Units 20:03 20:03 RBC 2.76 L (3.80-5.40) m/uL Hgb 9.1 L (11.4-16.0) gm/dL Hct 27.9 L (34.0-46.0) % MCV 101.0 H (80.0-100.0) fL Glucose 125 H (74-99) mg/dL POC Glucose (mg/dL) (75-99) mg/dL
--- NOTE | 2021-06-19 08:55 | P.CNPUL ---
History of Present Illness Consult date: 06/19/21 Requesting physician: Delvin Chambers Reason for consult: other (Critical care management) Chief complaint: Frequent PVCs History of present illness: This is a very pleasant 60-year-old female patient who follows with Dr. Momin as her primary care provider. She has a history of hyperlipidemia, h ypothyroidism, mild aortic stenosis, mild coronary artery disease. 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 She follows with Dr. García for the same. She was brought in on 06/17/2021 for repeat ablation for the RVOT PVCs. Following the procedure Angio-seal was applied to the arterial site. Vascade applied to the venous punctures. Hemostasis was achieved. On 06/18/2021 she developed right groin discomfort. She was found to have a pseudoaneurysm measuring 5.0 x 2.9 x 2.5 cm. There is also some right lower abdominal discomfort and concern regarding abdominal wall hematoma. Computed tomography scan of the abdomen revealed a fairly extensive right-sided retroperitoneal/extra peritoneal hematoma extending from the right side of the pelvis up to the level of the lower pole of the right kidney. Hemorrhage thickens the right rectus abdominis and slightly thickens the right lateral abdominal wall musculature. Based on these findings the patient was transferred to the intensive care unit last night for closer monitoring. She is seen today in consultation. She is awake and alert in no acute distress. Resting flat in bed. She is still having significant right groin and right lower quadrant abdominal discomfort. She is receiving some relief from the Dilaudid. Most recent hemoglobin 9.1. White count 6.2. Platelets 157. Sodium 137. Potassium 3.7. BUN 17. Creatinine 0.94. Glucose 125. He is currently in sinus rhythm with occasional PVCs. No shortness of breath, cough or congestion. No chest pain or palpitations. He is maintaining O2 saturations in the high 90s on room air. She's been afebrile. Hemodynamically stable. She has been seen by vascular surgery. The plan is for follow-up ultrasound today. Continue to monitor hemoglobin. Review of Systems REVIEW OF SYSTEMS: CONSTITUTIONAL: Denies any recent significant weight loss or weight gain. EYES: Denies change in vision. EARS, NOSE, MOUTH, THROAT: Denies headaches, denies sore throat. CARDIOVASCULAR: Denies chest pain, palpitations or syncopal episodes. RESPIRATORY: Denies shortness of breath, cough, congestion or hemoptysis. GASTROINTESTINAL: Denies change in appetite, denies abdominal pain GENITOURINARY: Denies hematuria, denies infections. MUSKULOSKELETAL: Right groin and right lower quadrant pain with hematoma. INTEGUMENTARY: Denies rash, denies eczema. NEUROLOGICAL: Denies recent memory loss, no recent seizure activity. PSYCHIATRIC: Denies anxiety, denies depression. HEMATOLOGIC/LYMPHATIC: Denies anemia, denies enlarged lymph nodes. Past Medical History Past Medical History: Hyperlipidemia, Osteoarthritis (OA), Sleep Apnea/CPAP/BIPAP, Thyroid Disorder Additional Past Medical History / Comment(s): SEE DR CHAMBERS'S HISTORY AND PHYSICAL FOR CARDIAC HISTORY, 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. Need Left shoulder surgery Roto cuff tear abd right knee replacement. IRREGULAR HEART BEAT History of Any Multi-Drug Resistant Organisms: None Reported Past Surgical History: Back Surgery, Breast Surgery, Cardiac Ablation, EPS, Heart Catheterization, Orthopedic Surgery Additional Past Surgical History / Comment(s): RIGHT ARTHROSCOPIC KNEE SURGERY, AMPUTATION RIGHT GREAT TOE, CELE-BILAT, L4 L5 LAMINECTOMY, Right breast biopsy. Node removed from vocal cord, LT ROTATOR CUFF REPAIR Past Anesthesia/Blood Transfusion Reactions: No Reported Reaction Past Psychological History: Anxiety, Panic Disorder Additional Psychological History / Comment(s): PANIC ATTACK ON OCCASION Smoking Status: Former smoker Past Alcohol Use History: None Reported Additional Past Alcohol Use History / Comment(s): STARTED SMOKING AT AGE 7 QUIT AGE 35 SMOKED 2PPD. QUIT DRINKING ALCOHOL IN 1990 - RECOVERIN Past Drug Use History: Cocaine, Marijuana Additional Drug Use History / Comment(s): PCP, [facility] MUSHROOMS- IN THE PAST - Past Family History Mother Family Medical History: Cancer Additional Family Medical History / Comment(s): BREAST CANCER Sister(s) Family Medical History: Deep Vein Thrombosis (DVT) Additional Family Medical History / Comment(s): DVT LEG Father Family Medical History: Pulmonary Embolus Medications and Allergies Home Medications Medication Instructions Recorded Confirmed Type Atorvastatin [Lipitor] 40 mg PO DAILY 03/28/20 06/17/21 History Diclofenac Sodium [Voltaren] 75 mg PO BID 03/28/20 06/17/21 History Ferrous Sulfate [Feosol] 325 mg PO DAILY 03/28/20 06/17/21 History HYDROcodone/APAP 10-325MG [[place] 1 tab PO Q4-6H PRN 03/28/20 06/17/21 History 10-325] Levothyroxine Sodium [Synthroid] 88 mcg PO DAILY 03/28/20 06/17/21 History Misoprostol [Cytotec] 200 mcg PO DAILY 03/28/20 06/17/21 History Sennosides/Docusate Sodium [Colace 1 each PO DAILY 03/28/20 06/17/21 History 2-in-1 Tablet] clonazePAM [KlonoPIN] 0.5 mg PO BID 03/28/20 06/17/21 History tiZANidine [Zanaflex] 2 mg PO Q8HR PRN 06/12/21 06/17/21 History Aspirin EC [Ecotrin] 325 mg PO DAILY #30 tab 06/17/21 Rx Flecainide [Tambocor] 50 mg PO Q12HR #90 tablet 06/17/21 Rx Allergies Allergy/AdvReac Type Severity Reaction Status Date / Time adhesive tape Allergy SKIN PEELS Verified 06/17/21 14:00 cyclobenzaprine Allergy Nausea & Verified 06/17/21 14:00 [From Flexeril] Vomiting Physical Exam Vitals: Vital Signs Temp Pulse Pulse Resp BP BP Pulse Ox 06/19/21 05:00 73 12 133/74 99 06/19/21 04:00 97.8 F 71 10 L 129/78 96 06/19/21 03:00 89 18 126/74 06/19/21 02:00 96 12 143/80 98 06/19/21 01:00 79 16 126/72 98 06/19/21 00:00 87 9 L 121/74 98 06/18/21 23:00 81 17 122/71 99 06/18/21 22:00 107 H 18 137/80 96 06/18/21 21:00 86 16 125/70 93 L 06/18/21 20:00 87 16 120/63 93 L 06/18/21 19:20 98 15 114/62 93 L 06/18/21 19:10 89 16 114/62 93 L 06/18/21 19:00 89 8 L 113/57 92 L 06/18/21 18:50 87 7 L 113/57 95 02/02/22 18:40 92 15 113/57 95 06/18/21 18:30 96 13 126/82 93 L 06/18/21 18:20 90 9 L 126/82 93 L 06/18/21 18:10 95 5 L 117/60 96 06/18/21 18:00 92 8 L 113/69 94 L 06/18/21 17:50 89 6 L 113/69 95 06/18/21 17:40 83 22 116/72 91 L 06/18/21 17:30 92 11 L 101/62 92 L 06/18/21 17:20 95 4 L 101/62 90 L 06/18/21 17:10 92 11 L 113/68 96 06/18/21 17:00 93 8 L 95 06/18/21 16:53 87 3 L 92 L 06/18/21 15:37 96 103/64 06/18/21 14:10 96 85/52 06/18/21 13:20 98.5 F 56 L 18 95/52 97 06/18/21 13:03 82 16 91/56 95 06/18/21 12:48 98.5 F 56 L 16 95/52 97 Intake and Output 06/18/21 06/19/21 06/19/21 22:59 06:59 14:59 Intake Total 755 400 Output Total 200 300 Balance 555 100 Intake: IV 655 300 Sodium Chloride 0.9% 1, 655 300 000 ml In Empty Bag 1 bag @ 75 mls/hr IV .[id number] [facility] Rx#:[id number] Oral 100 100 Output: Urine 200 300 Other: Weight 70 kg GENERAL EXAM: Alert, very pleasant 60-year-old female patient, on room air, fairly comfortable in no apparent distress. HEAD: Normocephalic. EYES: Normal reaction of pupils, equal size. NOSE: Clear with pink turbinates. THROAT: No erythema or exudates. NECK: No masses, no JVD. CHEST: No chest wall deformity. LUNGS: Equal air entry with no crackles, wheeze, rhonchi or dullness. CVS: S1 and S2 normal with no audible murmur, regular rhythm. ABDOMEN: Right lower quadrant discomfort. No hepatosplenomegaly, normal bowel sounds, no guarding or rigidity. SPINE: No scoliosis or deformity SKIN: No rashes CENTRAL NERVOUS SYSTEM: No focal deficits, tone is normal in all 4 extremities. EXTREMITIES: Right groin edema and hematoma. There is no peripheral edema. No clubbing, no cyanosis. Peripheral pulses are intact. Results - Laboratory Findings CBC and BMP: 06/18/21 20:03 06/18/21 20:03 Abnormal lab findings: Abnormal Labs 06/17/21 06/18/21 06/18/21 23:57 05:39 13:04 RBC 3.25 L 3.13 L Hgb 10.7 L 10.3 L Hct 32.6 L 31.4 L MCV 100.2 H 100.4 H Lymphocytes # 0.7 L Glucose POC Glucose (mg/dL) 123 H 06/18/21 06/18/21 06/18/21 16:52 16:54 20:03 RBC 2.84 L 2.76 L Hgb 9.4 L 9.1 L Hct 28.7 L 27.9 L MCV 101.1 H 101.0 H Lymphocytes # Glucose POC Glucose (mg/dL) 120 H 06/18/21 20:03 RBC Hgb Hct MCV Lymphocytes # Glucose 125 H POC Glucose (mg/dL) Assessment and Plan Assessment: 1 Frequent PVCs from right ventricular outflow tract status post ablation on 06/17/2021 2 Right femoral pseudoaneurysm with fairly extensive right-sided retroperitoneal/extraperitoneal hematoma extending from the right side of the pelvis up to the level of the lower pole of the right kidney. Hemorrhage thickens the right rectus abdominis and slightly thickens the right lateral hip abdominal wall. Hemoglobin stable. Hemodynamically stable. 3 Previous history of frequent PVCs from the RVOT with previous ablation 4 Hypothyroidism 5 Hyperlipidemia Plan: The patient was seen and evaluated Stable from the pulmonary critical care standpoint Follow-up ultrasound of the right groin pending Continue to monitor hemoglobin closely Adequate pain control Vascular surgery on standby We will continue to follow and make further recommendations based on his clinical status I, the cosigning physician, performed a history & physical examination of the patient. Lungs sounds are clear. Maintaining good O2 saturations in the 90s on room air. I discussed the assessment and plan of care with my nurse practitioner, Es Ferraro. I attest to the above consultation as dictated by her. Time with Patient: Greater than 30
--- NOTE | 2021-06-19 09:07 | P.GSCN ---
History of Present Illness Consult date: 06/19/21 Reason for Consult: Pseudoaneurysm Requesting physician: Javier Arguello History of present illness: This is a 60-year-old female who was admitted by Dr. Michelle who recently underwent electrophysiology procedure. The procedure was PVC ablation which was performed on the right and left groin on 06/17/2021. Postprocedure the patient was experiencing right groin discomfort and there was a concern regarding retroperitoneal bleeding as well as possible pseudoaneurysm. Vascular surgery was consulted regarding pseudoaneurysm. The patient underwent a right lower extremity pseudo-artery ultrasound showing pseudo-aneurysm measuring 5.0 x 2.9 x 2.5 cm neck appears applied. Patient also underwent a CT of the abdomen and pelvis reporting a fairly extensive right-sided retroperitoneal/extraperitoneal hematoma extending from the right side of the pelvis up to the level of the lower pole of the right kidney. Hemorrhage thickens the right rectus abdominis and slightly thickens the right lateral abdominal wall musculature. On admission patient's hemoglobin was 10.7 last hemoglobin from yesterday evening 8 PM was 9.1. Interventional radiology was consulted for thrombin injection however they recommended to defer thrombin injection and have vascular surgery see patient. Vascular surgery was contacted yesterday evening and told to apply pressure to the groin, will monitor watch for bleeding and transfuse as needed. He is currently complaining of right groin pain and lower abdominal pain. She's been afebrile. Hemoglobin is stable at 9.4. He denies any chest pain, shortness of breath, nausea, or vomiting. Review of Systems A 14 point review of systems was completed all pertinent positives and negatives as stated in the HPI Past Medical History Past Medical History: Hyperlipidemia, Osteoarthritis (OA), Sleep Apnea/CPAP/BIPAP, Thyroid Disorder Additional Past Medical History / Comment(s): SEE DR MICHELLE'S HISTORY AND PHYSICAL FOR CARDIAC HISTORY, 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. Need Left shoulder surgery Roto cuff tear abd right knee replacement. IRREGULAR HEART BEAT History of Any Multi-Drug Resistant Organisms: None Reported Past Surgical History: Back Surgery, Breast Surgery, Cardiac Ablation, EPS, Heart Catheterization, Orthopedic Surgery Additional Past Surgical History / Comment(s): RIGHT ARTHROSCOPIC KNEE SURGERY, AMPUTATION RIGHT GREAT TOE, CELE-BILAT, L4 L5 LAMINECTOMY, Right breast biopsy. Node removed from vocal cord, LT ROTATOR CUFF REPAIR Past Anesthesia/Blood Transfusion Reactions: No Reported Reaction Past Psychological History: Anxiety, Panic Disorder Additional Psychological History / Comment(s): PANIC ATTACK ON OCCASION Smoking Status: Former smoker Past Alcohol Use History: None Reported Additional Past Alcohol Use History / Comment(s): STARTED SMOKING AT AGE 7 QUIT AGE 35 SMOKED 2PPD. QUIT DRINKING ALCOHOL IN 1990 - RECOVERIN Past Drug Use History: Cocaine, Marijuana Additional Drug Use History / Comment(s): PCP, [facility] MUSHROOMS- IN THE PAST - Past Family History Mother Family Medical History: Cancer Additional Family Medical History / Comment(s): BREAST CANCER Sister(s) Family Medical History: Deep Vein Thrombosis (DVT) Additional Family Medical History / Comment(s): DVT LEG Father Family Medical History: Pulmonary Embolus Medications and Allergies Home Medications Medication Instructions Recorded Confirmed Type Atorvastatin [Lipitor] 40 mg PO DAILY 03/28/20 06/17/21 History Diclofenac Sodium [Voltaren] 75 mg PO BID 03/28/20 06/17/21 History Ferrous Sulfate [Feosol] 325 mg PO DAILY 03/28/20 06/17/21 History HYDROcodone/APAP 10-325MG [[place] 1 tab PO Q4-6H PRN 03/28/20 06/17/21 History 10-325] Levothyroxine Sodium [Synthroid] 88 mcg PO DAILY 03/28/20 06/17/21 History Misoprostol [Cytotec] 200 mcg PO DAILY 03/28/20 06/17/21 History Sennosides/Docusate Sodium [Colace 1 each PO DAILY 03/28/20 06/17/21 History 2-in-1 Tablet] clonazePAM [KlonoPIN] 0.5 mg PO BID 03/28/20 06/17/21 History tiZANidine [Zanaflex] 2 mg PO Q8HR PRN 06/12/21 06/17/21 History Aspirin EC [Ecotrin] 325 mg PO DAILY #30 tab 06/17/21 Rx Flecainide [Tambocor] 50 mg PO Q12HR #90 tablet 06/17/21 Rx Allergies Allergy/AdvReac Type Severity Reaction Status Date / Time adhesive tape Allergy SKIN PEELS Verified 06/17/21 14:00 cyclobenzaprine Allergy Nausea & Verified 06/17/21 14:00 [From Flexeril] Vomiting Surgical - Exam Vital Signs Temp Pulse Resp BP Pulse Ox 97.8 F 85 16 135/88 97 06/17/21 14:09 06/17/21 14:09 06/17/21 14:09 06/17/21 14:09 06/17/21 14:09 General appearance: The patient is alert, oriented, appears in no acute distress. HET: Head is normocephalic and atraumatic. Pupils are equal and reactive. Neck: Supple without lymphadenopathy. Trachea midline. No audible carotid bruit. Heart: S1 S2. Regular rate and rhythm. Lungs: Clear to auscultation bilaterally. Abdomen: Soft, lower abdominal tenderness, nondistended. Extremities: Normal skin color and turgor. No cyanosis, rash, ulceration, clubbing, or edema. Palpable bilateral femoral and pedal pulses. Right groin tender to palpation, with ecchymosis. No active bleeding. Neurological: No focal deficits. Patient is alert and oriented 3.. Results - Labs 06/19/21 08:58 06/19/21 08:58 Abnormal Lab Results - Last 24 Hours (Table) 06/18/21 06/18/21 06/18/21 Range/Units 13:04 16:52 16:54 RBC 2.84 L (3.80-5.40) m/uL Hgb 9.4 L (11.4-16.0) gm/dL Hct 28.7 L (34.0-46.0) % MCV 101.1 H (80.0-100.0) fL Glucose (74-99) mg/dL POC Glucose (mg/dL) 123 H 120 H (75-99) mg/dL 06/18/21 06/18/21 Range/Units 20:03 20:03 RBC 2.76 L (3.80-5.40) m/uL Hgb 9.1 L (11.4-16.0) gm/dL Hct 27.9 L (34.0-46.0) % MCV 101.0 H (80.0-100.0) fL Glucose 125 H (74-99) mg/dL POC Glucose (mg/dL) (75-99) mg/dL Diabetes panel 06/18/21 Range/Units 20:03 Sodium 137 (137-145) mmol/L Potassium 3.7 (3.5-5.1) mmol/L Chloride 106 (98-107) mmol/L Carbon Dioxide 24 (22-30) mmol/L BUN 17 (7-17) mg/dL Creatinine 0.94 (0.52-1.04) mg/dL Glucose 125 H (74-99) mg/dL Calcium 8.4 (8.4-10.2) mg/dL Calcium panel 06/18/21 Range/Units 20:03 Calcium 8.4 (8.4-10.2) mg/dL Pituitary panel 06/18/21 Range/Units 20:03 Sodium 137 (137-145) mmol/L Potassium 3.7 (3.5-5.1) mmol/L Chloride 106 (98-107) mmol/L Carbon Dioxide 24 (22-30) mmol/L BUN 17 (7-17) mg/dL Creatinine 0.94 (0.52-1.04) mg/dL Glucose 125 H (74-99) mg/dL Calcium 8.4 (8.4-10.2) mg/dL Adrenal panel 06/18/21 Range/Units 20:03 Sodium 137 (137-145) mmol/L Potassium 3.7 (3.5-5.1) mmol/L Chloride 106 (98-107) mmol/L Carbon Dioxide 24 (22-30) mmol/L BUN 17 (7-17) mg/dL Creatinine 0.94 (0.52-1.04) mg/dL Glucose 125 H (74-99) mg/dL Calcium 8.4 (8.4-10.2) mg/dL - Imaging Comments: See HPI for details Assessment and Plan Assessment: 1. Postprocedural Pseudoaneurysm right groin 2. Abdominal wall hematoma 3. Status post electrophysiology procedure from right and left groin with arterial access from the right groin Plan: 1. Continue symptomatic and supportive care 2. Monitor CBC closely, transfuse per protocol 3. Apply pressure to right groin 4. Stat repeat arterial pseudoaneurysm ultrasound ordered 5. Interventional radiology consulted for thrombin injection 6. CTA abdomen and pelvis ordered for tomorrow morning 7. Further recommendations to follow based on patient's clinical course Thank you for this consultation, we will continue to follow. The impression and plan of care has been dictated as directed. Dr. Garrett I performed a history and examination of this patient, discussed the same with the dictator. I agree with the dictator's note ,documented as a scribe. Any additional findings or plans will be noted.
[2021-06-19 09:40] LABS: Calcium 8.8 mg/dL (8.4-10.2); Potassium 3.9 mmol/L (3.5-5.1)
[2021-06-19 09:42] LABS: Basophils # (A) 0.1 k/uL (0-0.2); Basophils % (A) 1 %; Eosinophils % (A) 1 %; HCT 28.9 % (34.0-46.0); HGB 9.4 gm/dL (11.4-16.0); Lymphocytes # (A) 1.6 k/uL (1.0-4.8); Lymphocytes % (A) 27 %; MCH 33.7 pg (25.0-35.0); MCHC 32.6 g/dL (31.0-37.0); MCV 103.4 fL (80.0-100.0); Macrocytosis Slight; Mean Platelet Volume 8.5; Monocytes # (A) 0.5 k/uL (0-1.0); Monocytes % (A) 9 %; Neutrophils # (A) 3.7 k/uL (1.3-7.7); Neutrophils % (A) 61 %; Platelet Count 136 k/uL (150-450); RBC 2.79 m/uL (3.80-5.40); RDW 12.4 % (11.5-15.5)
--- NOTE | 2021-06-19 10:49 | US ---
EXAMINATION TYPE: US lower ext pseudo artery RT DATE OF EXAM: 06/19/2021 COMPARISON: US dated 06/18/2021 CLINICAL HISTORY: re-evaluate pseudoaneurysm. Right groin catheterization 06/17/21 EXAM PERFORMED: Grayscale and color Doppler duplex imaging performed of the groin, post cardiac philomena ter to assess for pseudoaneurysm. SIDE PERFORMED: right groin Color and Pulse Waveform Doppler performed to assess for the presence of pseudoaneurysm; Is there ultrasound evidence of a pseudoaneurysm: yes, at procedural needle insert site superior to right inguinal ligament oval vascular mass= 4.3 x 3.2 x 2.2cm is noted again with bidirectional arter ial flow and neck is noted off External Iliac Artery. Neck size = 0.4cm A/P and 0.6cm wide. Is there evidence of AV shunting: no Is there a fluid collection present: small hypoechoic irregular mass is noted superior to pseudoaneur ysm = 2.8 x 1.3 x 1.2cm and may be hematoma. Right CFV DVT is noted and is non compressible and limited color flow patency is demonstrated IMPRESSION: Pseudoaneurysm in right groin as noted on prior ultrasound. There is associated suspected hematoma ex tending cephalad from the pseudoaneurysm. Lack of color flow noted in the right common femoral vein c onsistent with DVT, vein noted to be noncompressible by the certified dialysis technician
[2021-06-19] MEDS: LORazepam 2 MG/ML INJ IV PRN (12:27)
[2021-06-19] MEDS ORDERED: THROMBIN (BOVINE) 5,000 UNIT VIAL MISCELLANE ONE (12:45)
--- NOTE | 2021-06-19 14:14 | P.PCN ---
Date of Procedure: 06/19/21 Preoperative Diagnosis: right groin pseudoaneurysm Postoperative Diagnosis: thrombosed pseudoaneurysm Procedure(s) Performed: ultrasound guided thrombin injection Anesthesia: local Estimated Blood Loss (ml): 4 Condition: stable Disposition: no change Operative Findings: 275 units under ultrasound guide, clotted immediately
--- NOTE | 2021-06-19 14:35 | US ---
EXAMINATION TYPE: US inj pseudoaneurysm DATE OF EXAM: 06/19/2021 COMPARISON: Right groin Doppler duplex same date CLINICAL HISTORY: right groin pseudoaneurysm. EXAM PERFORMED: Ultrasound-guided pseudoaneurysm injection with thrombin SIDE PERFORMED: Right Maximal barrier technique was utilized. Ultrasound used with sterile technique. Following informed co nsent, skin overlying the pseudoaneurysm the right groin was localized with ultrasound and the overly ing skin prepped and draped. Lidocaine used for local anesthesia. 25-gauge needle was advanced into t he pseudoaneurysm using ultrasound guidance. A total of approximately 275 units of thrombin were inje cted under ultrasound guidance. 2 needle changes were performed due to clotting of the needle. Following the procedure hemostasis ach ieved. Patient expressed some transient tingling in the right foot which spontaneously resolved in le ss than 1 minute. Patient remained neurovascularly intact distally. During the exam, spontaneous clotting of the pseudoaneurysm was noted. No residual color flow, low-le krista internal echoes consistent with thrombus within the pseudoaneurysm noted. Common femoral artery r emains patent. IMPRESSION: Ultrasound-guided thrombin injection for right groin pseudoaneurysm, this procedure performed by the undersigned. Follow-up right groin ultrasound to assess for durability of result is ordered for alberta samuel.
--- NOTE | 2021-06-19 18:39 | P.PN ---
Subjective Principal diagnosis: Hossein is seen this afternoon She was having the carotid bruit or pain and has been receiving IV Dilaudid Subsequently she was injected with thrombin early afternoon by Dr. Torres and is doing very well She denies any chest discomfort no dizziness no lightheadedness She states that groin pain is a lot better Vitals are stable Her left thigh is swollen. She has SCDs on I have not started aspirin as of yet Impression PVC/VT ablation at the junction of the LVOT and aortic cusp, commissure between LCCA and RCC Date focus Pseudoaneurysm with abdominal wall hematoma Status post thrombin injection We will wait for another day before starting aspirin for a month DVT prophylaxis with SCDs, no Lovenox Appreciate input and effort from Dr. Arguello, Vascular surgery team and Dr. Torres, radiology Objective - Vital Signs Vital signs: Vital Signs Temp 99.3 F 06/19/21 16:00 Pulse 96 06/19/21 18:00 Resp 19 06/19/21 18:00 BP 115/71 06/19/21 18:00 Pulse Ox 95 06/19/21 18:00 Intake & Output 06/18/21 06/19/21 06/19/21 18:59 06:59 18:59 Intake Total 240 1155 450 Output Total 500 1150 Balance 240 655 -700 Weight 70 kg Intake: IV 955 450 0.9 @ 50 450 Sodium Chloride 0.9% 1, 955 000 ml In Empty Bag 1 bag @ 75 mls/hr IV .[id number] [facility] Rx#:[id number] Oral 240 200 Output: Urine 500 1150 Other: Voiding Method Indwelling Catheter Indwelling Catheter # Voids 2 - Labs CBC & Chem 7: 06/19/21 08:58 06/19/21 08:58 Labs: Abnormal Lab Results - Last 24 Hours (Table) 06/18/21 06/18/21 06/19/21 Range/Units 20:03 20:03 08:58 RBC 2.76 L 2.79 L (3.80-5.40) m/uL Hgb 9.1 L 9.4 L (11.4-16.0) gm/dL Hct 27.9 L 28.9 L (34.0-46.0) % MCV 101.0 H 103.4 H (80.0-100.0) fL Plt Count 136 L (150-450) k/uL Chloride (98-107) mmol/L Glucose 125 H (74-99) mg/dL 06/19/21 Range/Units 08:58 RBC (3.80-5.40) m/uL Hgb (11.4-16.0) gm/dL Hct (34.0-46.0) % MCV (80.0-100.0) fL Plt Count (150-450) k/uL Chloride 108 H (98-107) mmol/L Glucose 109 H (74-99) mg/dL
[2021-06-20] MEDS: LEVOTHYROXINE 88 MCG TAB PO SCH (03:02)
[2021-06-20 06:04] LABS: HCT 27.5 % (34.0-46.0); MCH 33.2 pg (25.0-35.0); MCHC 32.8 g/dL (31.0-37.0); Mean Platelet Volume 8.5; Platelet Count 127 k/uL (150-450); RBC 2.72 m/uL (3.80-5.40); RDW 13.1 % (11.5-15.5); WBC 5.5 k/uL (3.8-10.6)
[2021-06-20 06:20] LABS: Potassium 3.8 mmol/L (3.5-5.1)
[2021-06-20] MEDS ORDERED: Potassium Replacement Protocol 1 EACH MISC MISCELLANE PRN (06:25)
[2021-06-20] MEDS: miSOPROStoL 200 MCG TAB PO SCH (06:28)
[2021-06-20] MEDS: clonazePAM 0.5 MG TAB PO SCH ×2 (06:28→20:26)
[2021-06-20] MEDS: HYDROcodone/APAP 10-325MG 1 EACH TAB PO PRN ×3 (06:45→17:08)
[2021-06-20] MEDS ORDERED: POTASSIUM CHLORIDE ER 20 MEQ TAB.ER PO SCH (07:00)
--- NOTE | 2021-06-20 07:36 | P.PN ---
Subjective Progress Note Date: 06/20/21 The patient presented and underwent VT ablation post procedure she had right groin and abdominal discomfort and was found to have pseudo-aneurysm as well as abdominal wall hematoma. She is feeling better today. Her breathing is stable, she denies any chest discomfort. She is in sinus mechanism. Her abdominal discomfort is better but she continues to have some discomfort in the right groin. She underwent thrombin injection yesterday by Dr. Torres. She is undergoing repeat ultrasound this morning. She denies any dizziness, palpitations or syncope. He continues to be on Lipitor 40 mg daily, flecainide 50 mg twice a day. Her antiplatelets on hold for now. Physical examination Blood pressure 114/90 with a heart rate in the 80s Lungs clear to auscultation Heart: Regular rate and rhythm, S1-S2, a systolic ejection murmur heard at the base, Abdomen: Soft mild tenderness, improved compared to yesterday, no rebound. Extremities: No edema tenderness in the right groin. Labs showed a hemoglobin of 9, BUN and creatinine of 10 and 0.9. Impression: 1. Status post VT ablation 2. Post procedure Pseudoaneurysm status post thrombin injection] 3. [ Retroperitoneal hematoma] 4. [ History of hyperlipidemia] 5. [ History of hypertension Plan: 1. [ Await the report of the ultrasound of the groin] 2. [ If pseudoaneurysm closed consider restarting aspirin and increase physical activity] 3. [ Depending on her progress further recommendations will be made] ] Objective - Vital Signs Vital signs: Vital Signs Temp 98.2 F 06/20/21 04:00 Pulse 86 06/20/21 07:00 Resp 18 06/20/21 07:00 BP 114/95 06/20/21 07:00 Pulse Ox 94 L 06/20/21 07:00 Intake & Output 06/19/21 06/20/21 06/20/21 18:59 06:59 18:59 Intake Total 450 500 Output Total 1350 1530 Balance -900 -1030 Weight 71.8 kg Intake: IV 450 0 0.9 @ 50 450 0 Oral 500 Output: Urine 1350 1530 Other: Voiding Method Indwelling Catheter Indwelling Catheter - Labs CBC & Chem 7: 06/20/21 05:32 06/20/21 05:32 Labs: Abnormal Lab Results - Last 24 Hours (Table) 06/19/21 06/19/21 06/20/21 Range/Units 08:58 08:58 05:32 RBC 2.79 L (3.80-5.40) m/uL Hgb 9.4 L (11.4-16.0) gm/dL Hct 28.9 L (34.0-46.0) % MCV 103.4 H (80.0-100.0) fL Plt Count 136 L (150-450) k/uL Sodium 136 L (137-145) mmol/L Chloride 108 H (98-107) mmol/L Glucose 109 H 105 H (74-99) mg/dL 06/20/21 Range/Units 05:32 RBC 2.72 L (3.80-5.40) m/uL Hgb 9.0 L (11.4-16.0) gm/dL Hct 27.5 L (34.0-46.0) % MCV 101.0 H (80.0-100.0) fL Plt Count 127 L (150-450) k/uL Sodium (137-145) mmol/L Chloride (98-107) mmol/L Glucose (74-99) mg/dL
--- NOTE | 2021-06-20 08:34 | US ---
EXAMINATION TYPE: US lower ext pseudo artery RT DATE OF EXAM: 06/20/2021 COMPARISON: NONE CLINICAL HISTORY: post thrombin injection for pseudoaneurysm. post thrombin injection right groin pse udo EXAM PERFORMED: Grayscale and color Doppler duplex imaging performed of the groin, post cardiac philomena ter to assess for pseudoaneurysm. SIDE PERFORMED: right Color and Waveform Doppler performed to assess for the presence of pseudoaneurysm; Is there ultrasound evidence of a pseudoaneurysm: appears thrombosed at this time Is there evidence of AV shunting: no incidental finding: positive for DVT right CFV extending into right popliteal vein IMPRESSION: 1. The pseudoaneurysm appears to be thrombosed at this time. 2. DVT right common femoral vein extending into the popliteal vein.
[2021-06-20] MEDS: FLECAINIDE 50 MG TAB PO SCH ×2 (08:46→20:26)
[2021-06-20] MEDS: ATORVASTATIN 40 MG TAB PO SCH (08:46)
[2021-06-20] MEDS: HYDROmorphone 1 MG/ML 1 ML SYRINGE IVP PRN ×2 (08:48→14:39)
[2021-06-20] MEDS ORDERED: HEPARIN SODIUM 1,000 UN/ML (10ML VL) IV PRN (08:59)
--- NOTE | 2021-06-20 09:08 | P.PN ---
Subjective Progress Note Date: 06/20/21 06/20/2021, the patient is being seen for a follow-up intensive care unit. The patient is feeling much more comfortable compared to yesterday. Is not having any active pain in the right groin area. Note that yesterday, the patient had a thrombin injection by interventional radiology and the patient had successful results. The procedure was done by Dr. Torres. This involved thrombin injection into the area in the right groin pseudoaneurysm and the patient had subsequent thrombosis. The patient remained quite stable. Hemoglobin remains stable at 9.0. No further bleeding in the groin or the abdominal area. Meanwhile, I'll repeat Doppler both arterial and venous of the lower extremity from today showed good results in terms of the thrombosed pseudoaneurysm. Nevertheless, there was a right common femoral vein and popliteal DVT. This clot was in the right femoral vein extending into the popliteal vein on the right. As such, plastic surgery started discussing the case with cardiology to decide on anticoagulation. Final decision has not been made yet although there is the intention to start low intensity heparin this patient. She is hemodynamically stable. She is on room air oxygen. Pulse ox 92%. She is having less PVCs. Cardiac rhythm is sinus. No other significant events overnight. She is resting comfortably in bed. Outpatient medications have been resumed. The patient remains on flecainide Objective - Vital Signs Vital signs: Vital Signs Temp 99.4 F 06/20/21 08:00 Pulse 114 H 06/20/21 09:00 Resp 16 06/20/21 09:00 BP 110/85 06/20/21 09:00 Pulse Ox 93 L 06/20/21 09:00 Intake & Output 06/19/21 06/20/21 06/20/21 18:59 06:59 18:59 Intake Total 450 500 Output Total 1350 1530 Balance -900 -1030 Weight 71.8 kg Intake: IV 450 0 0.9 @ 50 450 0 Oral 500 Output: Urine 1350 1530 Other: Voiding Method Indwelling Catheter Indwelling Catheter - Exam General appearance: The patient is alert, oriented, appears in no acute distress. Patient is on room air oxygen and the breathing is nonlabored at this point in time. Head exam was generally normal. There was no scleral icterus or corneal arcus. Mucous membranes were moist. Neck: Supple without lymphadenopathy. Trachea midline. No audible carotid bruit. Cardiac exam revealed the PMI to be normally situated and sized. The rhythm was regular and no extrasystoles were noted during several minutes of auscultation. The first and second heart sounds were normal and physiologic splitting of the second heart sound was noted. There were no murmurs, rubs, clicks, or gallops. Lungs were clear to auscultation and percussion, and with normal diaphragmatic excursion. No wheezes or rales were noted. Abdomen: Soft, lower abdominal tenderness, nondistended. Extremities: Normal skin color and turgor. No cyanosis, rash, ulceration, clubbing, or edema. Palpable bilateral femoral and pedal pulses. Right groin non tender to palpation, with ecchymosis. No active bleeding. Neurological: No focal deficits. Patient is alert and oriented 3.. - Labs CBC & Chem 7: 06/20/21 05:32 06/20/21 05:32 Labs: Abnormal Lab Results - Last 24 Hours (Table) 06/19/21 06/19/21 06/20/21 Range/Units 08:58 08:58 05:32 RBC 2.79 L (3.80-5.40) m/uL Hgb 9.4 L (11.4-16.0) gm/dL Hct 28.9 L (34.0-46.0) % MCV 103.4 H (80.0-100.0) fL Plt Count 136 L (150-450) k/uL Sodium 136 L (137-145) mmol/L Chloride 108 H (98-107) mmol/L Glucose 109 H 105 H (74-99) mg/dL 06/20/21 Range/Units 05:32 RBC 2.72 L (3.80-5.40) m/uL Hgb 9.0 L (11.4-16.0) gm/dL Hct 27.5 L (34.0-46.0) % MCV 101.0 H (80.0-100.0) fL Plt Count 127 L (150-450) k/uL Sodium (137-145) mmol/L Chloride (98-107) mmol/L Glucose (74-99) mg/dL Assessment and Plan Plan: 1 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 2 Right femoral pseudoaneurysm with fairly extensive right-sided retroperitoneal/extraperitoneal hematoma extending from the right side of the pelvis up to the level of the lower pole of the right kidney. Hemorrhage thickens the right rectus abdominis and slightly thickens the right lateral hip abdominal wall. Hemoglobin stable. Hemodynamically stable. The patient underwent thrombin injection of the right femoral pseudoaneurysm with subsequent thrombosis. Hemoglobin has remained stable. Ultrasound Doppler of the lower extremity today shows a right popliteal/femoral DVT and the arterial pseudoaneurysm with a thrombosed. The patient is hemodynamically stable. No active pain for now. 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
[2021-06-20 09:42] LABS: Partial Thromboplastin Time 23.5 sec (22.0-30.0); Prothrombin Time 10.8 sec (9.0-12.0)
[2021-06-20] MEDS: HEPARIN SOD,PORK IN 0.45% NACL 25,000 UNIT in 0.45% NACL 1 250ML.BAG IV SCH (10:20)
[2021-06-20] MEDS: DOCUSATE 100 MG CAP PO PRN (11:48)
--- NOTE | 2021-06-20 14:11 | P.PAINCN ---
History of Present Illness - Reason for Consult Consult date: 06/20/21 - History of Present Illness This is 60 years old female with a chronic history of severe low back pain, and hip pain secondary to osteoarthritis, she'll be managed as an outpatient by her primary care and she was on [place] 10/325 every 6 hours when necessary, patient was admitted to [facility] secondary to arrhythmia, and she had electrophysiological study and Dr Henriquez performed PVS ablation, was procedure course was complicated with right groin pseudoaneurysm and left abdominal wall hematoma, patient was complaining of severe abdominal pain and groin pain and back pain, her pain was not controlled with the current regimen, yesterday patient thromboses, left pseudoaneurysm done by interventional radiology, and patient reported that her pain improved, and currently patient reported that the pain is controlled with the current medication [place] 10/325 every 6 hours and Dilaudid 1 mg every 4 hours when necessary, denies any side effect of the medication Past Medical History Past Medical History: Hyperlipidemia, Osteoarthritis (OA), Sleep Apnea/CPAP/B IPAP, Thyroid Disorder Additional Past Medical History / Comment(s): SEE DR CHAMBERS'S HISTORY AND PHYSICAL FOR CARDIAC HISTORY, 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. Need Left shoulder surgery Roto cuff tear abd right knee replacement. IRREGULAR HEART BEAT History of Any Multi-Drug Resistant Organisms: None Reported Past Surgical History: Back Surgery, Breast Surgery, Cardiac Ablation, EPS, Heart Catheterization, Orthopedic Surgery Additional Past Surgical History / Comment(s): RIGHT ARTHROSCOPIC KNEE SURGERY, AMPUTATION RIGHT GREAT TOE, CELE-BILAT, L4 L5 LAMINECTOMY, Right breast biopsy. Node removed from vocal cord, LT ROTATOR CUFF REPAIR Past Anesthesia/Blood Transfusion Reactions: No Reported Reaction Past Psychological History: Anxiety, Panic Disorder Additional Psychological History / Comment(s): PANIC ATTACK ON OCCASION Smoking Status: Former smoker Past Alcohol Use History: None Reported Additional Past Alcohol Use History / Comment(s): STARTED SMOKING AT AGE 7 QUIT AGE 35 SMOKED 2PPD. QUIT DRINKING ALCOHOL IN 1990 - RECOVERIN Past Drug Use History: Cocaine, Marijuana Additional Drug Use History / Comment(s): PCP, [facility]HROOM[facility]- IN THE PAST - Past Family History Mother Family Medical History: Cancer Additional Family Medical History / Comment(s): BREAST CANCER Sister(s) Family Medical History: Deep Vein Thrombosis (DVT) Additional Family Medical History / Comment(s): DVT LEG Father Family Medical History: Pulmonary Embolus Medications and Allergies Home Medications Medication Instructions Recorded Confirmed Type Atorvastatin [Lipitor] 40 mg PO DAILY 03/28/20 06/17/21 History Diclofenac Sodium [Voltaren] 75 mg PO BID 03/28/20 06/17/21 History Ferrous Sulfate [Feosol] 325 mg PO DAILY 03/28/20 06/17/21 History HYDROcodone/APAP 10-325MG [[place] 1 tab PO Q4-6H PRN 03/28/20 06/17/21 History 10-325] Levothyroxine Sodium [Synthroid] 88 mcg PO DAILY 03/28/20 06/17/21 History Misoprostol [Cytotec] 200 mcg PO DAILY 03/28/20 06/17/21 History Sennosides/Docusate Sodium [Colace 1 each PO DAILY 03/28/20 06/17/21 History 2-in-1 Tablet] clonazePAM [KlonoPIN] 0.5 mg PO BID 03/28/20 06/17/21 History tiZANidine [Zanaflex] 2 mg PO Q8HR PRN 06/12/21 06/17/21 History Aspirin EC [Ecotrin] 325 mg PO DAILY #30 tab 06/17/21 Rx Flecainide [Tambocor] 50 mg PO Q12HR #90 tablet 06/17/21 Rx Allergies Allergy/AdvReac Type Severity Reaction Status Date / Time adhesive tape Allergy SKIN PEELS Verified 06/17/21 14:00 cyclobenzaprine Allergy Nausea & Verified 06/17/21 14:00 [From Flexeril] Vomiting Physical Exam Vitals: Vital Signs Temp Pulse Resp BP BP Pulse Ox 06/20/21 07:00 86 18 114/95 94 L 06/20/21 06:00 84 22 146/81 93 L 06/20/21 05:00 81 20 122/74 94 L 06/20/21 04:00 98.2 F 79 3 L 109/65 99 06/20/21 03:00 92 20 123/74 96 06/20/21 02:00 89 21 124/84 96 06/20/21 01:00 105 H 12 94/55 97 06/20/21 00:00 98.2 F 110 H 18 123/79 96 06/19/21 23:00 98 18 130/72 98 06/19/21 22:13 98 20 130/72 98 06/19/21 22:00 96 19 139/75 99 06/19/21 21:00 98 16 130/80 95 06/19/21 20:00 98.2 F 115 H 12 123/78 95 06/19/21 19:00 99 21 127/72 95 06/19/21 18:00 96 19 115/71 95 06/19/21 17:00 115 H 15 119/81 93 L 06/19/21 16:00 99.3 F 96 10 L 148/79 92 L 06/19/21 15:00 85 18 152/85 95 06/19/21 14:10 18 152/85 96 06/19/21 14:00 84 16 125/75 94 L 06/19/21 13:25 18 125/75 97 06/19/21 13:00 85 10 L 153/82 95 06/19/21 12:00 99.1 F 90 14 113/81 92 L 06/19/21 11:00 106 H 15 146/92 95 06/19/21 10:00 82 10 L 135/82 96 06/19/21 09:00 79 14 135/70 97 Intake and Output 06/19/21 06/20/21 06/20/21 22:59 06:59 14:59 Intake Total 100 500 Output Total 1020 1085 Balance -920 -585 Intake: IV 100 0 0.9 @ 50 100 0 Oral 500 Output: Urine 1020 1085 Other: Voiding Method Indwelling Catheter Indwelling Catheter Weight 71.8 kg General appearance: The patient is alert, oriented, appears in no acute distress. Patient is on room air oxygen and the breathing is nonlabored at this point in time. Head exam was generally normal. There was no scleral icterus or corneal arcus. Mucous membranes were moist. Neck: Supple without lymphadenopathy. Trachea midline. No audible carotid bruit. Cardiac exam revealed the PMI to be normally situated and sized. The rhythm was regular and no extrasystoles were noted during several minutes of auscultation. The first and second heart sounds were normal and physiologic splitting of the second heart sound was noted. There were no murmurs, rubs, clicks, or gallops. Lungs were clear to auscultation and percussion, and with normal diaphragmatic excursion. No wheezes or rales were noted. Abdomen: Soft, lower abdominal tenderness, nondistended. Extremities: Normal skin color and turgor. No cyanosis, rash, ulceration, clubbing, or edema. Palpable bilateral femoral and pedal pulses. Right groin non tender to palpation, with ecchymosis. No active bleeding. Neurological: No focal deficits. Patient is alert and oriented 3.. Results CBC & Chem 7: 06/20/21 05:32 06/20/21 05:32 Labs: Abnormal Lab Results - Last 24 Hours (Table) 06/19/21 06/19/21 06/20/21 Range/Units 08:58 08:58 05:32 RBC 2.79 L (3.80-5.40) m/uL Hgb 9.4 L (11.4-16.0) gm/dL Hct 28.9 L (34.0-46.0) % MCV 103.4 H (80.0-100.0) fL Plt Count 136 L (150-450) k/uL Sodium 136 L (137-145) mmol/L Chloride 108 H (98-107) mmol/L Glucose 109 H 105 H (74-99) mg/dL 06/20/21 Range/Units 05:32 RBC 2.72 L (3.80-5.40) m/uL Hgb 9.0 L (11.4-16.0) gm/dL Hct 27.5 L (34.0-46.0) % MCV 101.0 H (80.0-100.0) fL Plt Count 127 L (150-450) k/uL Sodium (137-145) mmol/L Chloride (98-107) mmol/L Glucose (74-99) mg/dL Assessment and Plan Plan: Assessment and plan=1 acute on chronic pain , patient currently on [place] 10/325 every 4-6 hours when necessary, she reported that the current medication helping her to control her pain, she reported that the pain improved significantly after patient had Trumbosis of the pseudoaneurysm, I recommend to continue [place] 10/325, after discharge patient will follow up with her primary care for medication refill Time with Patient: Less than 30 PQRS Measure Charge Sheet - Pain Location Right Groin Pharmacological Interventions: Discuss Pain Med Options PQRS Narrative: Do You Want the Pneumonia No Vaccine AT THIS TIME? Blood Pressure [Right Arm 170/78 Sitting] Blood Pressure [Right Arm] 152/85 Blood Pressure 114/95 Pain Intensity [Right Shoulder 4 ] Pain Intensity [Right Groin] 3 Pain Intensity 5 Pain Scale Used [Right Numeric (1 - 10) Shoulder] Pain Scale Used Numeric (1 - 10) Scale Used Numeric (1 - 10) Home Medications: Ambulatory Orders Atorvastatin [Lipitor] 40 mg PO DAILY 03/28/20 Diclofenac Sodium [Voltaren] 75 mg PO BID 03/28/20 Ferrous Sulfate [Feosol] 325 mg PO DAILY 03/28/20 HYDROcodone/APAP 10-325MG [[place] 10-325] 1 tab PO Q4-6H PRN 03/28/20 Levothyroxine Sodium [Synthroid] 88 mcg PO DAILY 03/28/20 Misoprostol [Cytotec] 200 mcg PO DAILY 03/28/20 Sennosides/Docusate Sodium [Colace 2-in-1 Tablet] 1 each PO DAILY 03/28/20 clonazePAM [KlonoPIN] 0.5 mg PO BID 03/28/20 tiZANidine [Zanaflex] 2 mg PO Q8HR PRN 06/12/21 Aspirin EC [Ecotrin] 325 mg PO DAILY #30 tab 06/17/21 Flecainide [Tambocor] 50 mg PO Q12HR #90 tablet 06/17/21
--- NOTE | 2021-06-20 14:16 | P.PN ---
Subjective Progress Note Date: 06/20/21 Patient seen and examined as a follow-up for a right groin pseudoaneurysm. Today she is doing better. Yesterday she underwent thrombin injection with clotting. Repeat arterial ultrasound showed that the pseudoaneurysm appears to be thrombosed. However there was a DVT in the right common femoral vein e xtending into the popliteal vein. Still having some discomfort in the right groin. Hemoglobin is stable at 9.0. No evidence of any active bleeding. Objective - Vital Signs Vital signs: Vital Signs Temp 98.2 F 06/20/21 04:00 Pulse 86 06/20/21 07:00 Resp 18 06/20/21 07:00 BP 114/95 06/20/21 07:00 Pulse Ox 94 L 06/20/21 07:00 Intake & Output 06/19/21 06/20/21 06/20/21 18:59 06:59 18:59 Intake Total 450 500 Output Total 1350 1530 Balance -900 -1030 Weight 71.8 kg Intake: IV 450 0 0.9 @ 50 450 0 Oral 500 Output: Urine 1350 1530 Other: Voiding Method Indwelling Catheter Indwelling Catheter - Exam General appearance: The patient is alert, oriented, appears in no acute distress. HET: Head is normocephalic and atraumatic. Pupils are equal and reactive. Neck: Supple without lymphadenopathy. Trachea midline. No audible carotid bruit. Heart: S1 S2. Regular rate and rhythm. Lungs: Clear to auscultation bilaterally. Abdomen: Soft, lower abdominal tenderness, nondistended. Extremities: Normal skin color and turgor. No cyanosis, rash, ulceration, clubbing, or edema. Palpable bilateral femoral and pedal pulses. Right groin tender to palpation, with ecchymosis. No active bleeding. Neurological: No focal deficits. Patient is alert and oriented 3.. - Labs CBC & Chem 7: 06/20/21 05:32 06/20/21 05:32 Labs: Abnormal Lab Results - Last 24 Hours (Table) 06/19/21 06/19/21 06/20/21 Range/Units 08:58 08:58 05:32 RBC 2.79 L (3.80-5.40) m/uL Hgb 9.4 L (11.4-16.0) gm/dL Hct 28.9 L (34.0-46.0) % MCV 103.4 H (80.0-100.0) fL Plt Count 136 L (150-450) k/uL Sodium 136 L (137-145) mmol/L Chloride 108 H (98-107) mmol/L Glucose 109 H 105 H (74-99) mg/dL 06/20/21 Range/Units 05:32 RBC 2.72 L (3.80-5.40) m/uL Hgb 9.0 L (11.4-16.0) gm/dL Hct 27.5 L (34.0-46.0) % MCV 101.0 H (80.0-100.0) fL Plt Count 127 L (150-450) k/uL Sodium (137-145) mmol/L Chloride (98-107) mmol/L Glucose (74-99) mg/dL Assessment and Plan Assessment: 1. Postprocedural Pseudoaneurysm right groin status post thrombin injection 2. Abdominal wall hematoma 3. Status post electrophysiology procedure from right and left groin with arterial access from the right groin 4. Right lower extremity DVT Plan: 1. Continue symptomatic and supportive care 2. Monitor CBC closely, transfuse per protocol 3. Repeat arterial US RLE 4. Sart heparin drip per protocol, no bolus 5. Watch for signs of bleeding 6. Transition to oral anticoagulation of your choice after 248 hours 7. If any signs of bleeding will likely require IVC filter Thank you for this consultation, we will continue to follow The impression and plan of care has been dictated as directed. Dr. Garrett I performed a history and examination of this patient, discussed the same with the dictator. I agree with the dictator's note ,documented as a scribe. Any additional findings or plans will be noted.
[2021-06-20] MEDS: LORazepam 2 MG/ML INJ IV PRN (17:08)
[2021-06-21] MEDS: HYDROcodone/APAP 10-325MG 1 EACH TAB PO PRN ×4 (01:15→21:05)
[2021-06-21] MEDS: LEVOTHYROXINE 88 MCG TAB PO SCH (03:02)
[2021-06-21] MEDS: HYDROmorphone 1 MG/ML 1 ML SYRINGE IVP PRN ×4 (05:03→19:15)
[2021-06-21] MEDS: FLECAINIDE 50 MG TAB PO SCH ×2 (06:09→20:55)
[2021-06-21] MEDS: miSOPROStoL 200 MCG TAB PO SCH (06:09)
[2021-06-21] MEDS: ATORVASTATIN 40 MG TAB PO SCH (06:10)
[2021-06-21] MEDS: clonazePAM 0.5 MG TAB PO SCH ×2 (06:10→20:55)
[2021-06-21] MEDS: HEPARIN SOD,PORK IN 0.45% NACL 25,000 UNIT in 0.45% NACL 1 250ML.BAG IV SCH (06:11)
[2021-06-21 07:41] LABS: Basophils # (A) 0.1 k/uL (0-0.2); Basophils % (A) 1 %; Eosinophils # (A) 0.2 k/uL (0-0.7); Eosinophils % (A) 3 %; HCT 28.2 % (34.0-46.0); HGB 9.1 gm/dL (11.4-16.0); Lymphocytes % (A) 29 %; MCH 33.1 pg (25.0-35.0); MCHC 32.3 g/dL (31.0-37.0); MCV 102.4 fL (80.0-100.0); Macrocytosis Slight; Mean Platelet Volume 8.3; Monocytes # (A) 0.6 k/uL (0-1.0); Monocytes % (A) 8 %; Neutrophils # (A) 4.1 k/uL (1.3-7.7); Neutrophils % (A) 58 %; Platelet Count 169 k/uL (150-450); RBC 2.75 m/uL (3.80-5.40); RDW 12.5 % (11.5-15.5); WBC 7.1 k/uL (3.8-10.6)
[2021-06-21] MEDS: DOCUSATE 100 MG CAP PO PRN (08:00)
--- NOTE | 2021-06-21 08:44 | P.PN ---
Subjective Progress Note Date: 06/21/21 06/20/2021, the patient is being seen for a follow-up intensive care unit. The patient is feeling much more comfortable compared to yesterday. Is not having any active pain in the right groin area. Note that yesterday, the patient had a thrombin injection by interventional radiology and the patient had successful results. The procedure was done by Dr. Torres. This involved thrombin injection into the area in the right groin pseudoaneurysm and the patient had subsequent thrombosis. The patient remained quite stable. Hemoglobin remains stable at 9.0. No further bleeding in the groin or the abdominal area. Meanwhile, I'll repeat Doppler both arterial and venous of the lower extremity from today showed good results in terms of the thrombosed pseudoaneurysm. Nevertheless, there was a right common femoral vein and popliteal DVT. This clot was in the right femoral vein extending into the popliteal vein on the right. As such, plastic surgery started discussing the case with cardiology to decide on anticoagulation. Final decision has not been made yet although there is the intention to start low intensity heparin this patient. She is hemodynamically stable. She is on room air oxygen. Pulse ox 92%. She is having less PVCs. Cardiac rhythm is sinus. No other significant events overnight. She is resting comfortably in bed. Outpatient medications have been resumed. The patient remains on flecainide 2021, the patient remains on IV heparin. No bleeding complications. Some soreness in the right groin area yet there is no development of any significant hematoma in hemoglobin is at 9.1. Cardiac rhythm is sinus. Occasional PVCs are present. The patient is passing status had no bowel movements. Pain control is with [place] and IV Dilaudid. Use of narcotics probably hindered his ability to have a bowel movement. She is tolerating her diet. She is communicating. Pulse ox is 95% on room air oxygen. No other issues or complications for now. The patient remains on IV heparin. The patient will be started on anticoagulation with Eliquis. Objective - Vital Signs Vital signs: Vital Signs Temp 98.8 F 06/21/21 00:00 Pulse 99 06/21/21 08:00 Resp 10 L 06/21/21 08:00 BP 126/71 06/21/21 08:00 Pulse Ox 95 06/21/21 08:00 Intake & Output 06/20/21 06/21/21 06/21/21 18:59 06:59 18:59 Intake Total 837.644 9197.704 401.779 Output Total 1065 2145 360 Balance -295.824 -344.296 41.779 Weight 70.2 kg Intake: IV 180 260 20 0.9 KVO 180 260 20 Intake, IV Titration 89.176 140.704 21.779 Amount Heparin Sod,Pork in 0.45% 89.176 140.704 21.779 NaCl 25,000 unit In 0.45 % NaCl 1 250ml.bag @ 18 UNITS/KG/HR 12.924 mls/hr IV .[id number] [facility] Rx#: [id number] Oral 500 1400 360 Output: Urine 1065 2145 360 Other: Voiding Method Indwelling Catheter Indwelling Catheter Indwelling Catheter - Exam General appearance: The patient is alert, oriented, appears in no acute distress. Patient is on room air oxygen and the breathing is nonlabored at this point in time. Head exam was generally normal. There was no scleral icterus or corneal arcus. Mucous membranes were moist. Neck: Supple without lymphadenopathy. Trachea midline. No audible carotid br uit. Cardiac exam revealed the PMI to be normally situated and sized. The rhythm was regular and no extrasystoles were noted during several minutes of auscultation. The first and second heart sounds were normal and physiologic splitting of the second heart sound was noted. There were no murmurs, rubs, clicks, or gallops. Lungs were clear to auscultation and percussion, and with normal diaphragmatic excursion. No wheezes or rales were noted. Abdomen: Soft, lower abdominal tenderness, nondistended. Extremities: Normal skin color and turgor. No cyanosis, rash, ulceration, clubbing, or edema. Palpable bilateral femoral and pedal pulses. Right groin non tender to palpation, with ecchymosis. No active bleeding. Neurological: No focal deficits. Patient is alert and oriented 3.. 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 2 Right femoral pseudoaneurysm with fairly extensive right-sided retroperitoneal/extraperitoneal hematoma extending from the right side of the pelvis up to the level of the lower pole of the right kidney. Hemorrhage thickens the right rectus abdominis and slightly thickens the right lateral hip abdominal wall. Hemoglobin stable. Hemodynamically stable. The patient underwent thrombin injection of the right femoral pseudoaneurysm with subsequent thrombosis. Hemoglobin has remained stable. Ultrasound Doppler of the lower extremity today shows a right popliteal/femoral DVT and the arterial pseudoaneurysm with a thrombosed. The patient is hemodynamically stable. No active pain for now. The patient is currently on IV heparin regarding a right lower extremity DVT. No evidence of bleeding in the right groin area. Hemoglobin remains stable. 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 No bleeding complications. Hemoglobin is stable. Plan: Start the patient on Eliquis some Reglan by mouth twice a day Stop anticoagulation with IV heparin Colace for laxative Watch for any signs of bleeding Monitor hemoglobin Cardiac rhythm is sinus and there is obvious improvement in the PVCs Home medications were resumed Keep in ICU for another 12 hours to major there is no bleeding Cardiology follow-up and vascular surgery follow-up We'll follow
[2021-06-21] MEDS: APIXABAN 5 MG TAB PO SCH ×2 (09:05→20:54)
--- NOTE | 2021-06-21 09:08 | P.PN ---
Subjective Progress Note Date: 06/21/21 PROGRESS NOTE The patient is complaining of abdominal right groin discomfort but denies any chest discomfort, dizziness or palpitations. Hemodynamically she is stable. She was found to have DVT but closure of her pseudoaneurysm. She denies any nausea or vomiting. She was started on IV heparin. Her hemoglobin is stable. Her urine output is good. She denies any nausea or vomiting. PHYSICAL EXAMINATION: Blood pressure [126/70] heart rate [90] LUNGS: [Clear to auscultation] HEART: [Regular rate and rhythm, S1, S2. No S3. systolic murmur, ejection type] ABDOMEN: [Soft, mild tenderness in the right lower quadrant, no organomegaly] EXTREMETIES: [No edema, tenderness in the right groin no rebound] LAB: Hemoglobin 9.1 IMPRESSION: 1. [ Status post VT ablation] 2. [ DVT postprocedure] 3. [ Pseudoaneurysm and abdominal bleeding, stable, post thrombin injection] 4. [ History of hypertension] PLAN: 1. Stop IV heparin start oral anticoagulation 2. Add beta dorys 3. Follow hemoglobin and renal function 4. Increase activity gradually. Objective - Vital Signs Vital signs: Vital Signs Temp 98.8 F 06/21/21 00:00 Pulse 99 06/21/21 08:00 Resp 10 L 06/21/21 08:00 BP 126/71 06/21/21 08:00 Pulse Ox 95 06/21/21 08:00 Intake & Output 06/20/21 06/21/21 06/21/21 18:59 06:59 18:59 Intake Total 559.912 7954.704 401.779 Output Total 1065 2145 360 Balance -295.824 -344.296 41.779 Weight 70.2 kg Intake: IV 180 260 20 0.9 KVO 180 260 20 Intake, IV Titration 89.176 140.704 21.779 Amount Heparin Sod,Pork in 0.45% 89.176 140.704 21.779 NaCl 25,000 unit In 0.45 % NaCl 1 250ml.bag @ 18 UNITS/KG/HR 12.924 mls/hr IV .[id number] [facility] Rx#: [id number] Oral 500 1400 360 Output: Urine 1065 2145 360 Other: Voiding Method Indwelling Catheter Indwelling Catheter Indwelling Catheter - Labs CBC & Chem 7: 06/21/21 07:15 06/20/21 05:32 Labs: Abnormal Lab Results - Last 24 Hours (Table) 06/20/21 06/20/21 06/21/21 Range/Units 16:13 23:04 07:15 RBC 2.75 L (3.80-5.40) m/uL Hgb 9.1 L (11.4-16.0) gm/dL Hct 28.2 L (34.0-46.0) % MCV 102.4 H (80.0-100.0) fL APTT 86.2 H 90.4 H (22.0-30.0) sec 06/21/21 Range/Units 07:15 RBC (3.80-5.40) m/uL Hgb (11.4-16.0) gm/dL Hct (34.0-46.0) % MCV (80.0-100.0) fL APTT 70.5 H (22.0-30.0) sec
[2021-06-21] MEDS: METOPROLOL TARTRATE 25 MG TAB PO SCH ×2 (11:58→20:56)
[2021-06-21] MEDS: LORazepam 2 MG/ML INJ IV PRN (12:11)
--- NOTE | 2021-06-21 15:13 | P.PN ---
Subjective Progress Note Date: 06/21/21 Principal diagnosis: right groin pseudoaneurysm patient seen and examined. Doing well. Complaining of pain at the right groin and right rectus area. Switched to oral anticoagulation today. Overnight having urination issues and needed catheterization. Objective - Vital Signs Vital signs: Vital Signs Temp 98.8 F 06/21/21 00:00 Pulse 85 06/21/21 14:00 Resp 11 L 06/21/21 14:00 BP 112/62 06/21/21 14:00 Pulse Ox 94 L 06/21/21 14:00 Intake & Output 06/20/21 06/21/21 06/21/21 18:59 06:59 18:59 Intake Total 990.919 0726.704 1061.779 Output Total 1065 2145 1110 Balance -295.824 -344.296 -48.221 Weight 70.2 kg Intake: IV 180 260 80 0.9 KVO 180 260 80 Intake, IV Titration 89.176 140.704 21.779 Amount Heparin Sod,Pork in 0.45% 89.176 140.704 21.779 NaCl 25,000 unit In 0.45 % NaCl 1 250ml.bag @ 18 UNITS/KG/HR 12.924 mls/hr IV .[id number] [facility] Rx#: [id number] Oral 500 1400 960 Output: Urine 1065 2145 1110 Other: Voiding Method Indwelling Catheter Indwelling Catheter Indwelling Catheter - Exam right groin with minimal edema. + Tenderness. Palpable femoral pulse, dp and pt pulses bilaterally. Right rectus area with tenderness. Some echymosis noted in right groin. - Labs CBC & Chem 7: 06/21/21 07:15 06/20/21 05:32 Labs: Abnormal Lab Results - Last 24 Hours (Table) 06/20/21 06/20/21 06/21/21 Range/Units 16:13 23:04 07:15 RBC 2.75 L (3.80-5.40) m/uL Hgb 9.1 L (11.4-16.0) gm/dL Hct 28.2 L (34.0-46.0) % MCV 102.4 H (80.0-100.0) fL APTT 86.2 H 90.4 H (22.0-30.0) sec 06/21/21 Range/Units 07:15 RBC (3.80-5.40) m/uL Hgb (11.4-16.0) gm/dL Hct (34.0-46.0) % MCV (80.0-100.0) fL APTT 70.5 H (22.0-30.0) sec Assessment and Plan Assessment: 1. Right pseudoaneurysm s/p thrombin injection 2. Right groin pain secondary to #1 3. Right rectus hematoma and retroperitoneal hematoma 4. s/p heart catheterization. Plan: Hemoglobin is stable- agree with oral anticoagulation Recommend increase activity- ambulate TID No vascular surgical intervention at this time. Continue to monitor H/H. If stable after OAC then ok for discharge. Follow up in vascular office in 2 weeks.
[2021-06-21] MEDS: FAMOTIDINE 20 MG/2 ML VIAL IV SCH (20:55)
[2021-06-22] MEDS: HYDROmorphone 1 MG/ML 1 ML SYRINGE IVP PRN ×5 (01:01→18:09)
[2021-06-22] MEDS: LEVOTHYROXINE 88 MCG TAB PO SCH (03:04)
[2021-06-22] MEDS: HYDROcodone/APAP 10-325MG 1 EACH TAB PO PRN ×4 (04:09→23:56)
[2021-06-22] MEDS: METOPROLOL TARTRATE 25 MG TAB PO SCH ×2 (06:27→20:38)
[2021-06-22] MEDS: clonazePAM 0.5 MG TAB PO SCH ×2 (06:27→20:38)
[2021-06-22] MEDS: APIXABAN 5 MG TAB PO SCH ×2 (06:28→20:38)
[2021-06-22] MEDS: FLECAINIDE 50 MG TAB PO SCH ×2 (06:28→20:38)
[2021-06-22] MEDS: ASPIRIN 81 MG PO SCH (06:28)
[2021-06-22] MEDS: ATORVASTATIN 40 MG TAB PO SCH (06:28)
[2021-06-22] MEDS: miSOPROStoL 200 MCG TAB PO SCH (06:28)
[2021-06-22] MEDS: FAMOTIDINE 20 MG/2 ML VIAL IV SCH (06:28)
[2021-06-22] MEDS: DOCUSATE 100 MG CAP PO PRN (06:42)
[2021-06-22 07:43] LABS: HGB 8.8 gm/dL (11.4-16.0); Hypochromasia Slight; MCH 33.2 pg (25.0-35.0); MCHC 31.5 g/dL (31.0-37.0); MCV 105.4 fL (80.0-100.0); Macrocytosis Slight; Mean Platelet Volume 8.2; Platelet Count 188 k/uL (150-450); RBC 2.65 m/uL (3.80-5.40); RDW 13.2 % (11.5-15.5); WBC 6.5 k/uL (3.8-10.6)
[2021-06-22 08:08] LABS: Calcium 8.8 mg/dL (8.4-10.2); Potassium 4.2 mmol/L (3.5-5.1)
--- NOTE | 2021-06-22 09:16 | P.PN ---
Subjective Progress Note Date: 06/22/21 PROGRESS NOTE The patient presented to undergo his VT ablation post procedure she had abdominal and right groin discomfort was diagnosed with a pseudoaneurysm an abdominal bleed. She underwent thrombin injection was closure of the pseudoaneurysm but was found to have a DVT and was started yesterday on oral anticoagulation. She's feeling better overall today, denies any chest discomfort. Her abdominal discomfort is better. She denies any dizziness or palpitations. She is in sinus mechanism with no ventricular ectopic activity. Hemodynamically she is stable. PHYSICAL EXAMINATION: Blood pressure 114/69 heart rate 89 LUNGS: [Clear to auscultation] HEART: [Regular rate and rhythm, S1, S2. No S3. systolic murmur, ejection type] ABDOMEN: [Soft, mild tenderness in the right lower quadrant, no organomegaly] EXTREMETIES: [No edema, right groin minimally tender] LAB: Hemoglobin 8.8 IMPRESSION: 1. Post VT ablation 2. Pseudoaneurysm an abdominal bleed post procedure status post thrombin injection was closure of the pseudoaneurysm 3. DVT postprocedure 4. History of hypertension PLAN: 1. Continue oral anticoagulation 2. Continue beta dorys and increase activity 3. Follow hemoglobin 4. Transfer to telemetry floor 5. If stable probable discharge home in 24 hours. Objective - Vital Signs Vital signs: Vital Signs Temp 98.4 F 06/22/21 04:00 Pulse 89 06/22/21 07:00 Resp 14 06/22/21 07:00 BP 114/69 06/22/21 07:00 Pulse Ox 93 L 06/22/21 07:00 Intake & Output 06/21/21 06/22/21 06/22/21 18:59 06:59 18:59 Intake Total 2181.779 1220 20 Output Total 2059 1330 60 Balance 121.779 -110 -40 Weight 71.1 kg Intake: IV 240 220 20 0.9 KVO 240 220 20 Intake, IV Titration 21.779 Amount Heparin Sod,Pork in 0.45% 21.779 NaCl 25,000 unit In 0.45 % NaCl 1 250ml.bag @ 18 UNITS/KG/HR 12.924 mls/hr IV .[id number] [facility] Rx#: [id number] Oral 1920 1000 Output: Urine 0 1330 60 Other: Voiding Method Indwelling Catheter Indwelling Catheter - Labs CBC & Chem 7: 06/22/21 07:14 06/22/21 07:14 Labs: Abnormal Lab Results - Last 24 Hours (Table) 06/22/21 06/22/21 Range/Units 07:14 07:14 RBC 2.65 L (3.80-5.40) m/uL Hgb 8.8 L (11.4-16.0) gm/dL Hct 28.0 L (34.0-46.0) % MCV 105.4 H (80.0-100.0) fL Sodium 132 L (137-145) mmol/L Glucose 119 H (74-99) mg/dL
--- NOTE | 2021-06-22 10:12 | P.PN ---
Subjective Progress Note Date: 06/22/21 Patient is evaluated today status post thrombin injection of a pseudoaneurysm arising from the right femoral artery. Outside of some discomfort associated with her abdominal wall hematoma she is without complaints. Objective - Vital Signs Vital signs: Vital Signs Temp 98.4 F 06/22/21 04:00 Pulse 89 06/22/21 07:00 Resp 14 06/22/21 07:00 BP 114/69 06/22/21 07:00 Pulse Ox 93 L 06/22/21 07:00 Intake & Output 06/21/21 06/22/21 06/22/21 18:59 06:59 18:59 Intake Total 2181.779 1220 20 Output Total 2060 1330 60 Balance 121.779 -110 -40 Weight 71.1 kg Intake: IV 240 220 20 0.9 KVO 240 220 20 Intake, IV Titration 21.779 Amount Heparin Sod,Pork in 0.45% 21.779 NaCl 25,000 unit In 0.45 % NaCl 1 250ml.bag @ 18 UNITS/KG/HR 12.924 mls/hr IV .[id number] [facility] Rx#: [id number] Oral 1920 1000 Output: Urine 0 1330 60 Other: Voiding Method Indwelling Catheter Indwelling Catheter - Exam There is no palpable pseudoaneurysm. Abdomen is soft although tender at the area of the hematoma. The right inguinal area is essentially unremarkable. - Labs CBC & Chem 7: 06/22/21 07:14 06/22/21 07:14 Labs: Abnormal Lab Results - Last 24 Hours (Table) 06/22/21 06/22/21 Range/Units 07:14 07:14 RBC 2.65 L (3.80-5.40) m/uL Hgb 8.8 L (11.4-16.0) gm/dL Hct 28.0 L (34.0-46.0) % MCV 105.4 H (80.0-100.0) fL Sodium 132 L (137-145) mmol/L Glucose 119 H (74-99) mg/dL Assessment and Plan Assessment: Status post thrombin injection of a pseudoaneurysm aneurysm arising from the right femoral artery. Plan: #1: Patient is surgically stable. #2: There are no restrictions from a surgical standpoint. #3: Discharge per primary service. #4: Office follow-up in 2-3 weeks post discharge. Card given to patient. #5: We will reevaluated your request. Time with Patient: Less than 30
--- NOTE | 2021-06-22 10:55 | P.PN ---
Subjective Progress Note Date: 06/22/21 06/20/2021, the patient is being seen for a follow-up intensive care unit. The patient is feeling much more comfortable compared to yesterday. Is not having any active pain in the right groin area. Note that yesterday, the patient had a thrombin injection by interventional radiology and the patient had successful results. The procedure was done by Dr. Torres. This involved thrombin injection into the area in the right groin pseudoaneurysm and the patient had subsequent thrombosis. The patient remained quite stable. Hemoglobin remains stable at 9.0. No further bleeding in the groin or the abdominal area. Meanwhile, I'll repeat Doppler both arterial and venous of the lower extremity from today showed good results in terms of the thrombosed pseudoaneurysm. Nevertheless, there was a right common femoral vein and popliteal DVT. This clot was in the right femoral vein extending into the popliteal vein on the right. As such, plastic surgery started discussing the case with cardiology to decide on anticoagulation. Final decision has not been made yet although there is the intention to start low intensity heparin this patient. She is hemodynamically stable. She is on room air oxygen. Pulse ox 92%. She is having less PVCs. Cardiac rhythm is sinus. No other significant events overnight. She is resting comfortably in bed. Outpatient medications have been resumed. The patient remains on flecainide 2021, the patient remains on IV heparin. No bleeding complications. Some soreness in the right groin area yet there is no development of any significant hematoma in hemoglobin is at 9.1. Cardiac rhythm is sinus. Occasional PVCs are present. The patient is passing status had no bowel movements. Pain control is with [place] and IV Dilaudid. Use of narcotics probably hindered his ability to have a bowel movement. She is tolerating her diet. She is communicating. Pulse ox is 95% on room air oxygen. No other issues or complications for now. The patient remains on IV heparin. The patient will be started on anticoagulation with Eliquis. 06/22/2021, hemodynamics stable and hemoglobin is stable at 8.7. The patient is on anticoagulation with Eliquis 10 mg twice a day. No bleeding complications. No hematoma formation. No pain in her groin or right lower extremity. She is having some gas pain in her abdomen. No nausea. No vomiting. No emesis. No bloody bowel movement. She is currently off IV heparin. Hemodynamically stable. She is on room air oxygen with a pulse ox of 93%. As mentioned, and evaluation was started because of a right lower extremity DVT. The patient also has a normal sinus rhythm. PVCs have significantly improved. Right abdominal wall and a hematoma and a groin hematoma is soft for now. Objective - Vital Signs Vital signs: Vital Signs Temp 98.4 F 06/22/21 04:00 Pulse 82 06/22/21 10:00 Resp 13 06/22/21 10:00 BP 103/67 06/22/21 10:00 Pulse Ox 92 L 06/22/21 10:00 Intake & Output 06/21/21 06/22/21 06/22/21 18:59 06:59 18:59 Intake Total 2181.779 1220 440 Output Total 2060 1330 285 Balance 121.779 -110 155 Weight 71.1 kg Intake: IV 240 220 80 0.9 KVO 240 220 80 Intake, IV Titration 21.779 Amount Heparin Sod,Pork in 0.45% 21.779 NaCl 25,000 unit In 0.45 % NaCl 1 250ml.bag @ 18 UNITS/KG/HR 12.924 mls/hr IV .[id number] [facility] Rx#: [id number] Oral 1920 1000 360 Output: Urine 2059 1330 285 Other: Voiding Method Indwelling Catheter Indwelling Catheter - Exam General appearance: The patient is alert, oriented, appears in no acute distress. Patient is on room air oxygen and the breathing is nonlabored at this point in time. Head exam was generally normal. There was no scleral icterus or corneal arcus. Mucous membranes were moist. Neck: Supple without lymphadenopathy. Trachea midline. No audible carotid bruit. Cardiac exam revealed the PMI to be normally situated and sized. The rhythm was regular and no extrasystoles were noted during several minutes of auscultation. The first and second heart sounds were normal and physiologic splitting of the second heart sound was noted. There were no murmurs, rubs, clicks, or gallops. Lungs were clear to auscultation and percussion, and with normal diaphragmatic excursion. No wheezes or rales were noted. Abdomen: Soft, lower abdominal tenderness, nondistended. The tenderness is minimal and the patient has some hematoma collection over the right lower quadrant and mid abdominal wall. No evidence of any acute bleeding. Puncture site in the right groin is dry clean and intact. Bowel sounds are hypoactive. Extremities: Normal skin color and turgor. No cyanosis, rash, ulceration, clubbing, or edema. Palpable bilateral femoral and pedal pulses. Right groin non tender to palpation, with ecchymosis. No active bleeding. Neurological: No focal deficits. Patient is alert and oriented 3.. 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 2 Right femoral pseudoaneurysm with fairly extensive right-sided retroper itoneal/extraperitoneal hematoma extending from the right side of the pelvis up to the level of the lower pole of the right kidney. Hemorrhage thickens the right rectus abdominis and slightly thickens the right lateral hip abdominal wall. Hemoglobin stable. Hemodynamically stable. The patient underwent thrombin injection of the right femoral pseudoaneurysm with subsequent thrombosis. Hemoglobin has remained stable. Ultrasound Doppler of the lower extremity today shows a right popliteal/femoral DVT and the arterial pseudoaneurysm with a thrombosed. The patient is hemodynamically stable. No active pain for now. The patient is currently on IV heparin regarding a right lower extremity DVT. No evidence of bleeding in the right groin area. Hemoglobin remains stable. Monitoring in the ICU for the past 24 hours has not resulted in any significant vascular or bleeding complications. 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 No bleeding complications. Hemoglobin is stable. Plan: Eliminate Dilaudid and use [place] for pain control Monitor bowel sounds in the patient's bowel sounds are still hypoactive. She is passing flatus. Increase mobility and put this patient up on a chair Discontinue the Gonsalez catheter Continue Eliquis, milligrams by mouth twice a day Watch for any signs of bleeding Monitor hemoglobin Cardiac rhythm is sinus and there is obvious improvement in the PVCs Home medications were resumed Cardiology follow-up and vascular surgery follow-up Was transferred this patient out of the intensive care unit.
[2021-06-22] MEDS: FAMOTIDINE 20 MG TAB PO SCH (20:38)
[2021-06-23] MEDS: LEVOTHYROXINE 88 MCG TAB PO SCH ×2 (03:01→03:06)
[2021-06-23] MEDS: DOCUSATE 100 MG CAP PO PRN (04:05)
[2021-06-23] MEDS: HYDROcodone/APAP 10-325MG 1 EACH TAB PO PRN ×2 (04:05→09:02)
[2021-06-23 07:48] LABS: HCT 23.4 % (34.0-46.0); HGB 7.7 gm/dL (11.4-16.0); MCH 32.7 pg (25.0-35.0); MCHC 32.8 g/dL (31.0-37.0); Mean Platelet Volume 7.9; Platelet Count 242 k/uL (150-450); RBC 2.35 m/uL (3.80-5.40); RDW 13.3 % (11.5-15.5); WBC 9.1 k/uL (3.8-10.6)
[2021-06-23 07:50] LABS: MCV 99.7 fL (80.0-100.0)
[2021-06-23 07:58] LABS: Calcium 9.2 mg/dL (8.4-10.2); Potassium 3.5 mmol/L (3.5-5.1)
[2021-06-23] MEDS: FLECAINIDE 50 MG TAB PO SCH (08:48)
[2021-06-23] MEDS: ATORVASTATIN 40 MG TAB PO SCH (08:48)
[2021-06-23] MEDS: FAMOTIDINE 20 MG TAB PO SCH ×2 (08:48→20:49)
[2021-06-23] MEDS: ASPIRIN 81 MG PO SCH (08:48)
[2021-06-23] MEDS: APIXABAN 5 MG TAB PO SCH ×2 (08:48→20:50)
[2021-06-23] MEDS: clonazePAM 0.5 MG TAB PO SCH ×2 (08:48→20:49)
[2021-06-23] MEDS: METOPROLOL TARTRATE 25 MG TAB PO SCH ×2 (08:48→20:50)
[2021-06-23] MEDS: miSOPROStoL 200 MCG TAB PO SCH (09:04)
[2021-06-23] MEDS ORDERED: DEXTROSE 5% IN WATER 100 ML with AMIODARONE 300 MG IV ONE (10:03)
[2021-06-23] MEDS ORDERED: AMIODARONE 300 MG in D5W 250ml IV ONE (10:15)
--- NOTE | 2021-06-23 14:39 | P.PN ---
Subjective The patient presented to undergo his VT ablation post procedure she had abdominal and right groin discomfort was diagnosed with a pseudoaneurysm an a bdominal bleed. She underwent thrombin injection was closure of the pseudoaneurysm but was found to have a DVT and was started yesterday on oral anticoagulation. This morning patient went atrial fibrillation with rapid ventricular response with heart rates in the [id number]. Patient denies shortness of breath denies any chest discomfort.She states she feels anxious. Her abdominal discomfort is better. She denies any dizziness or palpitations. She's currently maintained on Eliquis 10 mg twice a day, aspirin 81 mg daily, atorvastatin 40 mg daily, metoprolol titrate 25 mg twice a day, flecainide PHYSICAL EXAMINATION: Blood pressure 114/69 heart rate 89 LUNGS: Clear to auscultation HEART: Irregular rate and rhythm, S1, S2. No S3. 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 Michelle Continue oral anticoagulation Continue beta dorys and increase activity Further recommendations based on clinical course Objective - Vital Signs Vital signs: Vital Signs Temp 98 F 06/23/21 12:05 Pulse 103 H 06/23/21 12:05 Resp 16 06/23/21 12:05 BP 94/58 06/23/21 12:05 Pulse Ox 93 L 06/23/21 12:05 Intake & Output 06/22/21 06/23/21 06/23/21 18:59 06:59 18:59 Intake Total 720 240 Output Total 485 Balance 235 240 Intake: IV 120 0.9 KVO 120 Oral 600 240 Output: Urine 485 Other: Voiding Method Toilet Toilet Toilet # Voids 2 1 2 # Bowel Movements 2 - Labs CBC & Chem 7: 06/23/21 07:12 06/23/21 07:12 Labs: Abnormal Lab Results - Last 24 Hours (Table) 02/07/22 02/07/22 Range/Units 07:12 07:12 RBC 2.35 L (3.80-5.40) m/uL Hgb 7.7 L (11.4-16.0) gm/dL Hct 23.4 L (34.0-46.0) % Sodium 133 L (137-145) mmol/L BUN 19 H (7-17) mg/dL Creatinine 1.05 H (0.52-1.04) mg/dL Glucose 132 H (74-99) mg/dL
[2021-06-23] MEDS: AMIODARONE 360 MG in DEXTROSE 5% IN WATER 200 ML IV SCH ×4 (15:51→23:47)
--- NOTE | 2021-06-23 19:01 | P.PN ---
Subjective Patient seen on Wednesday evening She was still complaining of abdominal discomfort But improving Still on IV Dilaudid Mild sinus tachycardia Follow-up ultrasound of the groin revealed that the thumb an injection had effectively close the shoulders and neck Incidentally a DVT was noted in the common femoral vein IV heparin was initiated We plan on ELIQU for Wednesday, with an overlap with IV heparin On examination heart rate is about 100 beats a minute sinus mechanism Breath sounds are clear no rhonchi no crackles Abdomen is soft but definitely right lower quadrant tenderness The size of the abdominal mass/abdominal wall muscles remains unchanged Impression Elevated PVC status post ablation Femoral artery pseudoaneurysm status post permanent injection Abdominal wall and retropectoral hematoma Stable hemoglobin Status post thrombin injection successfully DVT secondary to extrinsic iliac vein compression hemoglobin 9.0 Plan IV heparin Switched to oral apixaban 10 mg twice daily tomorrow 5-6 hour overlap with IV heparin, then stop IV heparin tomorrow Aspirin 81 mg Pain medications Stool softeners Continue beta blockers and flecainide Pain service consulted Case management consulted for discharge planning Dr. Guerrero will follow over the weekend and I will scrap picker again on Wednesday I will see her again on the weekend too Objective - Vital Signs Vital signs: Vital Signs Temp 98 F 06/23/21 12:05 Pulse 98 06/23/21 17:00 Resp 18 06/23/21 15:45 BP 94/61 06/23/21 17:00 Pulse Ox 94 L 06/23/21 15:45 Intake & Output 06/23/21 06/23/21 06/24/21 06:59 18:59 06:59 Intake Total 1036.66 Balance 1036.66 Intake: Intake, IV Titration 316.66 Amount Amiodarone 360 mg In 66.66 Dextrose 5% in Water 200 ml @ 1 MG/MIN 33.333 mls/ hr IV .Q6H [facility] Rx#: [id number] Dextrose 5% in Water 250 250 ml @ 256 mls/hr IV .Q1H ONE with Amiodarone 300 mg Rx#:[id number] Oral 720 Other: Voiding Method Toilet Toilet # Voids 1 3 # Bowel Movements 2 - Labs CBC & Chem 7: 06/23/21 07:12 06/23/21 07:12 Labs: Abnormal Lab Results - Last 24 Hours (Table) 06/23/21 06/23/21 Range/Units 07:12 07:12 RBC 2.35 L (3.80-5.40) m/uL Hgb 7.7 L (11.4-16.0) gm/dL Hct 23.4 L (34.0-46.0) % Sodium 133 L (137-145) mmol/L BUN 19 H (7-17) mg/dL Creatinine 1.05 H (0.52-1.04) mg/dL Glucose 132 H (74-99) mg/dL
--- NOTE | 2021-06-23 19:05 | P.PN ---
Progress Note - Text Patient seen this morning Comfortable In sinus mechanism Pain is a lot better Tolerating oral Narco 10 mg, her home dose Has not been given IV Dilaudid for over 24 hours and is doing well She's been walking to the bathroom No chest discomfort dizziness or lightheadedness Later this morning she went to atrial fibrillation with RVR IV amiodarone started 300 mg bolus She organized into 2-1 atrial tachycardia Now she is on IV infusion of amiodarone Her current issues include 2-1 atrial tachycardia on amiodarone, awaiting chemical cardioversion while on ELIQUIS A drop in hemoglobin to 7.7 Follow-up hemoglobin tomorrow Follow-up 2-D echo, limited tomorrow Will discuss with vascular surgery regarding further management
[2021-06-23] MEDS: ONDANSETRON 4 MG/2 ML VIAL IVP PRN (20:49)
[2021-06-24] MEDS: LEVOTHYROXINE 88 MCG TAB PO SCH (02:59)
[2021-06-24] MEDS: HYDROcodone/APAP 10-325MG 1 EACH TAB PO PRN ×3 (05:24→17:49)
[2021-06-24] MEDS: DOCUSATE 100 MG CAP PO PRN (05:24)
[2021-06-24] MEDS: AMIODARONE 360 MG in DEXTROSE 5% IN WATER 200 ML IV SCH ×8 (05:26→22:30)
[2021-06-24 07:33] LABS: HCT 23.4 % (34.0-46.0); HGB 7.5 gm/dL (11.4-16.0); MCH 31.9 pg (25.0-35.0); MCHC 32.1 g/dL (31.0-37.0); MCV 99.3 fL (80.0-100.0); Platelet Count 293 k/uL (150-450); RBC 2.35 m/uL (3.80-5.40); RDW 13.2 % (11.5-15.5); WBC 8.8 k/uL (3.8-10.6)
--- NOTE | 2021-06-24 08:32 | P.PN ---
Subjective Hossein is resting comfortably in bed Abdominal swelling his heart and now the size pretty much remained the same Clinically I don't feel there is any increase in size at all No new/worsening tenderness in the abdomen Blood pressure 104/69 mmHg pulse rate in the 90s She is back in sinus rhythm No JVD Normal heart sounds The groin site where thrombin was injected is tender but unchanged from yesterday. She has had some bleeding in her bowels, fresh blood from hemorrhoids She was severely constipated Impression Very frequent PVCs originating from the LVOT, just beyond the aortic cusp Status post ablation Femoral artery pseudoaneurysm with abdominal wall and retroperitoneal hematoma with drop in hemoglobin 2 days back I started a baby aspirin in addition to ELIQUIS 10 mg twice daily There has been a decline in hemoglobin since then Family history of prothrombin mutation Right femoral DVT Development of atrial fibrillation yesterday now on amiodarone and back in sinus rhythm after a transitional atrial tachycardia with 21 block with RVR Plan I discussed the plan with the nurse practitioner and with the patient's nurse Discontinue aspirin Patient warned about the risks of taking diclofenac at this time at home I also asked her to cut back on oral narcotics at home otherwise constipation would become persistent Continue IV amiodarone today at 1 mg/m Tomorrow be switched to by mouth amiodarone for 2 weeks then stop ELIQUIS to continue for DVT per protocol ELIQUIS for at least 3 months I will ask her to give the details of prothrombin mutation from her sister so that we can check to 2-D echo and Doppler study today to look at the RA and RV size and function and RVSP Objective - Vital Signs Vital signs: Vital Signs Temp 96.8 F L 06/24/21 08:00 Pulse 94 06/24/21 08:00 Resp 18 06/24/21 08:00 BP 104/69 06/24/21 08:00 Pulse Ox 96 06/24/21 08:00 Intake & Output 06/23/21 06/24/21 06/24/21 18:59 06:59 18:59 Intake Total 1036.66 388.331 180 Output Total 100 Balance 1036.66 288.331 180 Intake: Intake, IV Titration 316.66 388.331 Amount Amiodarone 360 mg In 66.66 388.331 Dextrose 5% in Water 200 ml @ 1 MG/MIN 33.333 mls/ hr IV .Q6H [facility] Rx#: [id number] Dextrose 5% in Water 250 250 ml @ 256 mls/hr IV .Q1H ONE with Amiodarone 300 mg Rx#:[id number] Oral 720 180 Output: Urine 100 Other: Voiding Method Toilet Toilet # Voids 3 1 # Bowel Movements 2 2 - Labs CBC & Chem 7: 06/24/21 06:55 06/23/21 07:12 Labs: Abnormal Lab Results - Last 24 Hours (Table) 06/24/21 Range/Units 06:55 RBC 2.35 L (3.80-5.40) m/uL Hgb 7.5 L (11.4-16.0) gm/dL Hct 23.4 L (34.0-46.0) %
[2021-06-24] MEDS: clonazePAM 0.5 MG TAB PO SCH ×2 (09:43→20:51)
[2021-06-24] MEDS: FAMOTIDINE 20 MG TAB PO SCH ×2 (09:43→20:50)
[2021-06-24] MEDS: ATORVASTATIN 40 MG TAB PO SCH (09:43)
[2021-06-24] MEDS: METOPROLOL TARTRATE 25 MG TAB PO SCH ×2 (09:43→20:50)
[2021-06-24] MEDS: miSOPROStoL 200 MCG TAB PO SCH (09:44)
[2021-06-24] MEDS: APIXABAN 5 MG TAB PO SCH ×2 (09:44→20:50)
--- NOTE | 2021-06-24 12:00 | ECHOF ---
Referral Reason:DVT, look for RA/RV thrombus MEASUREMENTS -------- HEIGHT: 172.7 cm WEIGHT: 70.8 kg BP: IVSd: 1.2 cm (0.6 - 1.1) LVIDd: 3.4 cm (3.9 - 5.3) LVPWd: 1.3 cm (0.6 - 1.1) IVSs: 1.3 cm LVIDs: 2.4 cm LVPWs: 1.2 cm Ao Diam: 3.2 cm (2.0 - 3.7) AV Cusp: 1.7 cm (1.5 - 2.6) LA Diam: 2.5 cm (2.7 - 3.8) RAP: 5.00 mmHg RVSP: 13.19 mmHg FINDINGS -------- This was a technically difficult study with suboptimal views. The left ventricular size is normal. There is mild concentric left ventricular hypertrophy. Overa ll left ventricular systolic function is normal with, an EF between 55 - 60 %. The right ventricle is normal in size. The left atrial size is normal. The right atrial size is normal. Lumason used The aortic valve is trileaflet and appears structurally normal. The mitral valve is normal. There is trace mitral regurgitation. The tricuspid valve appears structurally normal. Mild tricuspid regurgitation present. Right vent ricular systolic pressure is normal at < 35 mmHg. There is no pulmonic regurgitation present. The aortic root size is normal. Normal inferior vena cava with normal inspiratory collapse consistent with estimated right atrial pre ssure of 5 mmHg. CONCLUSIONS -------- 1. The left ventricular size is normal. 2. There is mild concentric left ventricular hypertrophy. 3. Overall left ventricular systolic function is normal with, an EF between 55 - 60 %. 4. There is trace mitral regurgitation. 5. Mild tricuspid regurgitation present. FIRST RESPONDER: Nancy Myrick RDCS
[2021-06-24] MEDS: ONDANSETRON 4 MG/2 ML VIAL IVP PRN (17:48)
[2021-06-25] MEDS: LEVOTHYROXINE 88 MCG TAB PO SCH (03:05)
[2021-06-25 08:43] VITALS: BP 111/62; PULSE 86; RESP 16; TEMP 98.2
[2021-06-25] MEDS: ATORVASTATIN 40 MG TAB PO SCH (10:23)
[2021-06-25] MEDS: APIXABAN 5 MG TAB PO SCH (10:23)
[2021-06-25] MEDS: FAMOTIDINE 20 MG TAB PO SCH (10:24)
[2021-06-25] MEDS: METOPROLOL TARTRATE 25 MG TAB PO SCH (10:24)
[2021-06-25] MEDS: miSOPROStoL 200 MCG TAB PO SCH (10:25)
[2021-06-25] MEDS: clonazePAM 0.5 MG TAB PO SCH (12:02)
== END 2021-06-25 12:14 | disposition home health service (06) | DRG 273 ==
LOC: CATHEP 13:38 → 6NMEDSUR 19:05 → CATHEP 06-18 14:01 → 6NMEDSUR 06-18 14:01 → 2SICU 06-18 16:40 → OBSVTOIN 06-19 07:34 → 3SCARD 06-22 17:23
PROVIDERS: ADMIT Internal Medicine Clinical Cardiac Electrophysiology; ATTEND Internal Medicine Clinical Cardiac Electrophysiology
PROC: B24BZZZ Ultrasonography of Heart with Aorta (ICD-10-PCS; principal; 2021-06-17 15:30)
PROC: 4A023FZ Measurement of Cardiac Rhythm, Percutaneous Approach (ICD-10-PCS; principal; 2021-06-17 15:30)
PROC: 4A0234Z Measurement of Cardiac Electrical Activity, Percutaneous Approach (ICD-10-PCS; principal; 2021-06-17 15:30)
PROC: 02583ZZ Destruction of Conduction Mechanism, Percutaneous Approach (ICD-10-PCS; principal; 2021-06-17 15:30)
PROC: 3E053GC Introduction of Other Therapeutic Substance into Peripheral Artery, Percutaneous Approach (ICD-10-PCS; 2021-06-19)
DX: T81.718A Complication of other artery following a procedure, not elsewhere classified, initial encounter (principal); K66.1 Hemoperitoneum; I82.411 Acute embolism and thrombosis of right femoral vein; I82.431 Acute embolism and thrombosis of right popliteal vein; I87.1 Compression of vein; I47.1 Supraventricular tachycardia; I48.0 Paroxysmal atrial fibrillation; Z89.411 Acquired absence of right great toe; F14.11 Cocaine abuse, in remission; F16.11 Hallucinogen abuse, in remission; I08.2 Rheumatic disorders of both aortic and tricuspid valves; I49.3 Ventricular premature depolarization; I10 Essential (primary) hypertension; I25.10 Atherosclerotic heart disease of native coronary artery without angina pectoris; E03.9 Hypothyroidism, unspecified; E78.5 Hyperlipidemia, unspecified; F41.0 Panic disorder [episodic paroxysmal anxiety]; M15.9 Polyosteoarthritis, unspecified; G47.30 Sleep apnea, unspecified; F41.9 Anxiety disorder, unspecified; K59.00 Constipation, unspecified; K64.9 Unspecified hemorrhoids; F12.11 Cannabis abuse, in remission; Z79.890 Hormone replacement therapy; Z79.899 Other long term (current) drug therapy; Z96.651 Presence of right artificial knee joint; Z87.39 Personal history of other diseases of the musculoskeletal system and connective tissue; Z87.891 Personal history of nicotine dependence; Z96.643 Presence of artificial hip joint, bilateral; Z87.2 Personal history of diseases of the skin and subcutaneous tissue; Z87.09 Personal history of other diseases of the respiratory system; Z98.890 Other specified postprocedural states; Z88.8 Allergy status to other drugs, medicaments and biological substances; Z91.048 Other nonmedicinal substance allergy status; Z82.49 Family history of ischemic heart disease and other diseases of the circulatory system; Z80.3 Family history of malignant neoplasm of breast; Z83.2 Family history of diseases of the blood and blood-forming organs and certain disorders involving the immune mechanism
CPT/HCPCS: 36002; 74176; 80048; 85025; 85027; 85610; 85730; 86850; 86900; 86901; 93306; 93654; 93975

== ENCOUNTER → 2021-11-20 | Outpatient (CLI) | payer OTHER ==
--- NOTE | 2021-11-21 08:50 | CT ---
EXAMINATION TYPE: CT angio abd aorta w/Runoff DATE OF EXAM: 11/20/2021 COMPARISON: Abdomen and pelvis 06/18/2021. Ultrasound on the right 06/20/2021. HISTORY: 61-year-old female I72.4, right femoral pseudoaneurysm. TECHNIQUE: Contiguous axial scanning of the abdomen and pelvis performed without and with IV Contrast , patient injected with 100 mL of Isovue 370. Post contrast bilateral lower extremity runoff was perf ormed. Coronal/sagittal reconstructions performed. 3-D reconstructions generated on a dedicated works tation. CT DLP: 1788 mGycm Automated exposure control for dose reduction was used. FINDINGS: Heart normal size without pericardial effusion. Mildly ectatic ascending aorta 3.7 cm. Dependent atel ectasis lower lungs. Some scattered interstitial thickening, possibly mild fibrosis in the visualized lower lungs. No pleural effusion. Noncontrast and early arterial phase imaging of the liver, gallbladder, adrenal glands, and pancreas show no gross abnormality. Both kidneys show mild pelviectasis which is a new finding. No obstructing stone or hydroureter seen. Probably transient. Unchanged calcification along the lateral periphery of the spleen, possibly sequela of prior traumati c insult. No dilated small bowel, free fluid, or free air. No mesenteric or retroperitoneal lymphadenopathy. Sc attered mild stool. No pericolonic inflammatory change. Limited assessment of the pelvis due to extensive artifact from the patient's bilateral total hip art hroplasties. VASCULATURE: Celiac axis, SMA, and left renal artery are patent. There is moderate atherosclerotic stenosis at the origin of the right renal artery. Mild atherosclerotic calcifications distal abdominal aorta and bilateral iliac arteries without signi ficant stenosis. RIGHT: There appears to be mild mass effect onto the anterior wall of the CIVIL DRAFTSMAN secondary to a 4.6 x 3.7 cm ov al, slow filling mass in the upper right inguinal region. Pseudoaneurysm on 06/20/2021 measured 4.6 x 2 .5 x 2.6 cm. Discrete feeding vessel is not clearly identified. There is some poorly defined soft tissue density along the inferior margin of this pseudoaneurysm terrie t abuts the medial margin of the distal CIVIL DRAFTSMAN and could represent some residual mild hematoma. Just medial to the pseudoaneurysm posterior to and abutting the right rectus abdominous, there is a r ound 3.1 cm nonenhancing soft tissue density lesion. Higher up along the deep aspect of the right rec tus sheath, there is a similar second lesion measuring 2.0 cm along the medial margin of the inferior epigastric artery. PSA and SFA as well as the popliteal artery and proximal trifurcation vessels are patent. The trifurcation vessels become diminutive at the mid leg level. Suspect the scanner out running the contrast bolus. LEFT: The CIVIL DRAFTSMAN, PSA, SFA, popliteal artery, and proximal trifurcation vessels are patent. These vessels beco me diminutive at the mid leg level. Suspect the scanner out running the contrast bolus. BONES: Advanced spondylotic change mid to lower lumbar spine. Possibly a partially fixed grade 1, nearly gra de 2 anterolisthesis L2-L3. Bilateral total hip arthroplasties. IMPRESSION: 1. A 4.6 X 3.7 CM SLOW FILLING PSEUDOANEURYSM IN THE UPPER RIGHT INGUINAL REGION LOCATED ANTEROMEDIAL TO THE CIVIL DRAFTSMAN. THE ENTIRE LUMEN APPEARS TO OPACIFY THOUGH AT A SLOWER RATE THAN THE ADJACENT ARTERY. TH ERE MAY BE SOME RESIDUAL MILD HEMATOMA INTERPOSED BETWEEN. THE FEEDING VESSEL/NECK IS NOT CLEARLY ROB NTIFIED. 2. THE PSEUDOANEURYSM CREATES MILD MASS EFFECT ONTO THE ANTERIOR WALL OF THE RIGHT CIVIL DRAFTSMAN. NO SIGNIFICAN T ARTERIAL STENOSIS. 3. JUST MEDIAL TO THE RIGHT SIDED PSEUDOANEURYSM LOCATED POSTERIOR TO AND ABUTTING THE RIGHT RECTUS A BDOMINIS, THERE IS A ROUND 3.1 CM NONENHANCING SOFT TISSUE DENSITY LESION. POSSIBLE CHRONIC HEMATOMA. OTHER MASS SUCH A SCHWANNOMA IS NOT EXCLUDED AT THIS TIME. METASTATIC DEPOSIT CONSIDERED LESS LIK MAXX BUT ALSO IN THE DIFFERENTIAL. 6 - 8 [address]EEK FOLLOW-UP CT TO REASSESS. THERE IS A SECOND SIMILAR LESI ON HIGHER UP AT THE RIGHT LOWER QUADRANT MEASURING 2.0 CM.
== END | disposition home or self-care (01) ==
LOC: RADCTMAIN 13:53
PROVIDERS: ATTEND Surgery
DX: I72.4 Aneurysm of artery of lower extremity (principal)
CPT/HCPCS: 82565; 84520; 75635; 36415; Q9967

== ENCOUNTER 2021-12-12 09:45 | Inpatient (IN) | payer OTHER ==
[2021-12-11 09:15] VITALS: BMI 23.6
[~2021-12-12 09:45] MED LIST changes: +DEXAMETHASONE SOD PHOSPHATE 4 MG/ML 1 ML VIAL IV ONE; -LACTATED RINGERS 1,000 ML IV SCH; +LIDOCAINE 1% (10MG/ML) FOR IV START INTRADERMA PRN; +MIDAZOLAM 2 MG/2 ML VIAL IV PRN; +ONDANSETRON 4 MG/2 ML VIAL IVP ONE; -SODIUM CHLORIDE 0.9% 1,000 ML IV SCH
[2021-12-12] MEDS: LACTATED RINGERS 1,000 ML IV SCH (10:30)
[2021-12-12] MEDS ORDERED: LIDOCAINE 1% (10MG/ML) FOR IV START INTRADERMA ONE (10:30)
[2021-12-12 10:52] LABS: Basophils # (A) 0.1 k/uL (0-0.2); Basophils % (A) 1 %; Eosinophils # (A) 0.2 k/uL (0-0.7); Eosinophils % (A) 4 %; HCT 38.2 % (34.0-46.0); HGB 12.2 gm/dL (11.4-16.0); Lymphocytes % (A) 36 %; MCH 30.4 pg (25.0-35.0); MCHC 31.9 g/dL (31.0-37.0); MCV 95.3 fL (80.0-100.0); Mean Platelet Volume 8.8; Monocytes # (A) 0.4 k/uL (0-1.0); Monocytes % (A) 7 %; Neutrophils # (A) 2.8 k/uL (1.3-7.7); Neutrophils % (A) 50 %; Platelet Count 231 k/uL (150-450); RBC 4.01 m/uL (3.80-5.40); RDW 13.8 % (11.5-15.5); WBC 5.5 k/uL (3.8-10.6)
[2021-12-12 11:55] LABS: Albumin 3.8 g/dL (3.5-5.0); Total Bilirubin 0.4 mg/dL (0.2-1.3); Total Protein 6.7 g/dL (6.3-8.2)
[2021-12-12] MEDS ORDERED: ROCURONIUM 10 MG/ML (5 ML VIAL) IV ONE (13:04)
[2021-12-12] MEDS ORDERED: GLYCOPYRROLATE 0.2 MG/ML 2 ML VIAL ONE (13:04)
[2021-12-12] MEDS ORDERED: MIDAZOLAM 2 MG/2 ML VIAL ONE (13:04)
[2021-12-12] MEDS ORDERED: hydrALAZINE HCL 20 MG/ML 1 ML VIAL ONE (13:04)
[2021-12-12] MEDS ORDERED: PROPOFOL 10 MG/ML 20 ML VIAL IV ONE (13:04)
[2021-12-12] MEDS ORDERED: NEOSTIGMINE 1 MG/ML 10 ML VIAL ONE (13:04)
[2021-12-12] MEDS ORDERED: KETOROLAC 15 MG/ML 1 ML VIAL ONE (13:04)
[2021-12-12] MEDS ORDERED: LIDOCAINE 2% INJ 20 MG/ML (2 ML VIAL) ONE (13:04)
[2021-12-12] MEDS ORDERED: SUCCINYLCHOLINE CHLORIDE 200 MG/10 ML VIAL IV ONE (13:04)
[2021-12-12] MEDS ORDERED: fentaNYL (PF) 50 MCG/ML 2 ML AMP ONE (13:04)
[2021-12-12] MEDS ORDERED: HEPARIN SODIUM (1,000 UNIT/ML) 2,000 UNIT in SODIUM CHLORIDE 0.9% 1,000 ML IRRIGATION ONE (14:04)
[2021-12-12] MEDS ORDERED: ceFAZolin 2 GM in SODIUM CHLORIDE 0.9% 500 ML 500 ML IRRIGATION ONE (14:05)
[2021-12-12] MEDS ORDERED: MORPHINE SULFATE 2 MG/ML SYRINGE IVP PRN (15:36)
[2021-12-12] MEDS ORDERED: LACTATED RINGERS 1,000 ML IV ONE ×2 (15:39)
--- NOTE | 2021-12-12 15:44 | P.OP ---
Date of Procedure: 12/12/21 Preoperative Diagnosis: Right femoral pseudoaneurysm Postoperative Diagnosis: #1 Right femoral pseudoaneurysm #2 Right femoral vein compression secondary to #1 Procedure(s) Performed: Right groin exploration with control of hemorrhage Right iliac artery exposure Right femoral artery pseudoaneurysm repair and explantation Anesthesia: MAZIN Surgeon: El Garrett Appraisal Coordinator #1: Lucrecia Gonsalez Estimated Blood Loss (ml): 200 Pathology: other (pseudoaneurysm sac and thrombus) Condition: stable Disposition: PACU Indications for Procedure: 61 year old female with history of previous intervention via the right femoral vein presented months after with a right femoral artery pseudoaneurysm which was injected with thrombin and thought to be controlled. She then followed in the office with a bulge and discomfort in the right lower abdomen and groin and was sent for CTA which demonstrated active pseudoaneurysm. She also was complaining of swelling in the right lower leg with fatigue consistent with venous outflow issues and therefore we determined her best option was open repair and removal of the pseudoaneurysm. She presents today for procedure. Operative Findings: Large right femoral artery pseudoaneurysm just above the inguinal ligament with compression of the femoral vein. Description of Procedure: After written and informed consent was obtained from the patient and all risks, benefits, and complications were discussed the patient was brought to the operative suite and laid in a supine position. The area of the abdomen to the knees was prepped and draped in the usual sterile fashion after appropriate anesthesia was performed. Time out was performed in usual fashion and antibiotics were administered prior to incision. A vertical incision was then created at the right groin overlying the femoral artery with a 10 blade scalpel. Dissection was carried down to the pseudoaneurysm with electrocautery and meticulous dissection was then carried around the pseudoaneurysm to the common femoral artery. The pseudoaneurysm was large and extended above the inguinal ligament which was cut in order to get proximal control. The external iliac artery was then located and dissected free and controlled with a vessel loop. Continued dissection was carried distally to the SFA for distal control. The SFA was dissected free and controlled with a vessel loop. Upon dissection the pseudoaneurysm was extremely inflamed and abutting the femoral vein and compressing it. The vein was dissected away from the pseudoaneurysm and pseudoaneurysm was resected. The stalk and whole in the artery was located and multiple 6-0 prolene sutures were placed to control the bleeding and close the pseudoaneurysm stalk. All control was released prior to the final suture and good brisk backbleeding was noted from the SFA and profunda. There was pulsatile bleeding for inflow and final suture was secured. No bleeding was noted and good pulses noted distally to the repair. The area was irrigated with antibiotic solution and incision was closed in a multilayer fashion after a 10 germaine drain was placed. The patient tolerated the procedure well, had palpable DP and PT pulses and was sent to PACU for recovery.
[2021-12-12] MEDS: HYDROmorphone 0.5 MG/0.5 ML SYRINGE IVP PRN ×3 (16:35→17:25)
[2021-12-12] MEDS ORDERED: diphenhydrAMINE 50 MG/ML 1 ML VIAL IVP ONE (16:37)
[2021-12-12] MEDS: HYDROcodone/APAP 5-325MG 1 EACH TAB PO PRN (21:11)
[2021-12-12] MEDS ORDERED: tiZANidine 4 MG TAB PO PRN (21:41)
[2021-12-12] MEDS: clonazePAM 0.5 MG TAB PO SCH (21:52)
[2021-12-12] MEDS: ONDANSETRON 4 MG/2 ML VIAL IVP PRN (21:59)
[2021-12-13] MEDS: LEVOTHYROXINE 88 MCG TAB PO SCH (03:22)
[2021-12-13] MEDS: DOCUSATE 100 MG CAP PO SCH (07:37)
[2021-12-13] MEDS: FERROUS SULFATE 325 MG TAB PO SCH (07:37)
[2021-12-13] MEDS: clonazePAM 0.5 MG TAB PO SCH ×2 (07:37→20:02)
[2021-12-13] MEDS: miSOPROStoL 200 MCG TAB PO SCH (07:37)
[2021-12-13] MEDS: ATORVASTATIN 40 MG TAB PO SCH (07:37)
[2021-12-13] MEDS: HYDROcodone/APAP 5-325MG 1 EACH TAB PO PRN ×3 (07:49→19:34)
--- NOTE | 2021-12-13 10:04 | P.PN ---
Subjective Progress Note Date: 12/13/21 Patient seen and examined. Did have issues with the wound VAC overnight continuing to make noise however this is improved. Overall she feels better, slightly decreased swelling in her leg but does have some swelling at the incisional site. No complaints otherwise. She did have an episode of numb and tingling to her below knee area yesterday afternoon but that has since resolved Objective - Vital Signs Vital signs: Vital Signs Temp 98.4 F 12/13/21 07:35 Pulse 86 12/13/21 07:35 Resp 18 12/13/21 07:35 BP 130/77 12/13/21 07:35 Pulse Ox 97 12/13/21 07:35 FiO2 Intake & Output 12/12/21 12/13/21 12/13/21 18:59 06:59 18:59 Intake Total 1802 Output Total 1250 2150 Balance 552 -2150 Weight 71.2 kg Intake: IV 1802 Output: Drainage 50 Right 50 Urine 1050 2100 Estimated Blood Loss 200 Other: Voiding Method Indwelling Catheter Indwelling Catheter # Voids 1 - Exam Gen. is a pleasant cooperative female in no acute distress. HEENT is normocephalic. Irregular heart. Lungs are clear. Abdomen is soft. Right lower extremity 1+ edema. Right groin incision VAC clean and dry with adequate appearing suction. ROMULO drain with serosanguineous drainage. Palpable dorsalis pedis. Right lower extremity warm and dry. - Labs CBC & Chem 7: 12/12/21 10:30 12/12/21 11:27 Labs: Abnormal Lab Results - Last 24 Hours (Table) 12/12/21 Range/Units 11:27 Chloride 110 H (98-107) mmol/L Assessment and Plan Assessment: Postoperative day #1 from large right femoral pseudoaneurysm repair and resection Plan: Patient doing well overall. Still with some swelling and limited mobility. Hopeful for discharge in next 24 hours. Likely we will discontinue the wound VAC as it needed multiple repair tapes and does continue to have suction sounds. currently appears to be doing okay, suctioned down sponge. We'll continue ROMULO likely upon discharge with short interim follow-up in the office for removal.
[2021-12-13] MEDS: FAMOTIDINE 20 MG TAB PO SCH (11:29)
[2021-12-13] MEDS: ONDANSETRON 4 MG/2 ML VIAL IVP PRN (14:34)
--- NOTE | 2021-12-13 17:27 | P.CONS ---
History of Present Illness - Reason for Consult Consult date: 12/13/21 Medical management Requesting physician: El Garrett - Chief Complaint Aneurysm repair - History of Present Illness This is a pleasant 61-year-old patient, follows with Dr. Titus Chicas. Chronic stable medical conditions includes atrial fibrillation, hyperlipidemia, os teoarthritis, obstructive sleep apnea, hypothyroid. Does use a CPAP machine. Herniated disc of the neck. ADHD. On 06/17/2021 patient underwent ablation by Dr. Delvin Chambers. 4 outflow tract PVCs greater than 20%. Patient has successful ablation several years ago. Following that patient developed a pseudoaneurysm 5 cm x 2.9 cm x 2.5 cm. Subsequent computed tomography scan showed a extensive right-sided retroperitoneal and extra pectoral hematoma. Subsequently Dr. Torres from intervention radiology ultrasound-guided thrombin injection. Subsequent ultrasound showed her to be thrombosed. On June 20. 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 Also I'll 3.1 cm on enhancing soft tissue density near by. Patient had subsequently followed up in the office with a bulge and discomfort in the groin and this in some above CT was done. She also complaining of swelling of the right groin area. Patient yesterday underwent right femoral artery pseudoaneurysm repair and compression of the right femoral vein was decreased. This morning patient has a Hemovac in place. And a wound VAC. About 50 mL per shift. Patient did vomit once last night after eating fish. This morning feeling better. Not too happy about the breakfast served to her. No chest pain or shortness of breath. Review of systems: GEN.: Tired EYES: None HEENT: None NECK: None RESPIRATORY: None CARDIOVASCULAR: None GASTROINTESTINAL: None GENITOURINARY: None MUSCULOSKELETAL: None LYMPHATICS: None HEMATOLOGICAL: As above PSYCHIATRY: Bit anxious NEUROLOGICAL: None Past medical history to include: Atrial fibrillation, hyperlipidemia, frequent PVCs, but ablation, OR sleep apnea with CPAP, hypothyroid, herniated disc in the neck, ADHD, anxiety, Social history: *Smoke in the age of 7 stopped at age of 35 2 packs a day. Quit drinking excess giselle alcohol in 1990. In the past to do cocaine and marijuana. Does and ALT marijuana once or twice per week. CBD on hands daily. Family history: Breast cancer Physical examination: VITAL SIGNS: 98.4,'s 86, 18, 1:30/77, 97% room air GENERAL: BMI 23.3, sitting on bed, awake. EYES: Pupils equal. Conjunctiva normal. HEENT: External appearance of nose and ears normal, oral cavity grossly normal. NECK: JVD not raised; masses not palpable. HEART: First and second heart sounds are normal; no edema. LUNGS: Respiratory rate normal; decreased breath sound. ABDOMEN: Soft, nontender, liver spleen not palpable, no masses palpable. Right groin wound VAC in place. Hemovac. PSYCH: Alert and oriented x3; mood and affect some anxietyl. MUSCULOSKELETAL:No Clubbing/cyanosis;muscles-grossly intact NEUROLOGICAL: Cranial nerves grossly intact; no facial asymmetry, power and sensation grossly intact. LYMPHATICS: No lymph nodes palpable in the axilla and neck INVESTIGATIONS, reviewed in the clinical context: White count 5.5, hemoglobin 12.2 platelets 231 potassium 4 creatinine 0.9 Assessment and plan: -Repair of large pseudoaneurysm of the right femoral artery, from prior right groin access for ablation in June 2021. Wound VAC in place. Hemovac -Paroxysmal atrial fibrillation, status post ablation: Currently sinus rhythm Currently eliquis on hold -Multiple PVCs on telemetry -Hyperlipidemia Lipitor 40 mg -GERD Pepcid -Hypothyroid Synthroid 88 g a day -Anxiety not otherwise specified Klonopin 0.5 mg twice a day Home medications resumed. Follow H&H. Care was discussed with the patient. Questions answered. Thank you Dr. Garrett Past Medical History Past Medical History: Atrial Fibrillation, Hyperlipidemia, Osteoarthritis (OA), Sleep Apnea/CPAP/BIPAP, Thyroid Disorder Additional Past Medical History / Comment(s): pt states "I have 2 aneurysm rt groin area from cardiac ablation,I can feel bulging in rt groin,swelling rt leg",SEE DR CHAMBERS'S HISTORY AND PHYSICAL FOR CARDIAC HISTORY, 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- unable to use if laying flat, "I blew out my left shoulder-fell after rot cuff repair", "I have a 3rd heart beat",freq falls-uses cane,2 herniated discs in neck History of Any Multi-Drug Resistant Organisms: None Reported Past Surgical History: Back Surgery, Breast Surgery, Cardiac Ablation, EPS, Heart Catheterization, Orthopedic Surgery Additional Past Surgical History / Comment(s): RIGHT ARTHROSCOPIC KNEE SURGERY, AMPUTATION RIGHT GREAT TOE, L4 L5 LAMINECTOMY, Right breast biopsy. Node removed from vocal cord, LT ROTATOR CUFF REPAIR,shelia hip replacements Past Anesthesia/Blood Transfusion Reactions: No Reported Reaction Past Psychological History: ADD/ADHD, Anxiety, Panic Disorder Additional Psychological History / Comment(s): PANIC ATTACK ON OCCASION Smoking Status: Former smoker Past Alcohol Use History: None Reported Additional Past Alcohol Use History / Comment(s): STARTED SMOKING AT AGE 7 QUIT AGE 35 SMOKED 2PPD. QUIT DRINKING ALCOHOL IN 1990 - Past Drug Use History: Cocaine, Marijuana Additional Drug Use History / Comment(s): PCP, [facility]- IN THE PAST . uses edible marijuana 1-2 times per week. uses cbd cream on hands daily - Past Family History Mother Family Medical History: Cancer Additional Family Medical History / Comment(s): BREAST CANCER Sister(s) Family Medical History: Deep Vein Thrombosis (DVT) Additional Family Medical History / Comment(s): DVT LEG Father Family Medical History: Pulmonary Embolus Additional Family Medical History / Comment(s): polycythemia-had hana filter Medications and Allergies Home Medications Medication Instructions Recorded Confirmed Type Atorvastatin [Lipitor] 40 mg PO DAILY 03/28/20 12/11/21 History Ferrous Sulfate [Feosol] 325 mg PO DAILY 03/28/20 12/11/21 History HYDROcodone/APAP 10-325MG [[place] 1 tab PO Q4-6H PRN 03/28/20 12/11/21 History 10-325] Levothyroxine Sodium [Synthroid] 88 mcg PO 0300 03/28/20 12/11/21 History clonazePAM [KlonoPIN] 0.5 mg PO BID 03/28/20 12/11/21 History miSOPROStoL [Cytotec] 200 mcg PO QAM 03/28/20 12/11/21 History tiZANidine [Zanaflex] 2 mg PO Q8HR PRN 06/12/21 12/11/21 History Apixaban [Eliquis] 10 mg PO BID 90 Days tab 06/25/21 12/11/21 Rx Docusate Sodium [Dok] 100 mg PO DAILY 12/11/21 12/11/21 History Famotidine [Pepcid] 20 mg PO 1200 12/11/21 12/11/21 History Allergies Allergy/AdvReac Type Severity Reaction Status Date / Time adhesive tape Allergy tears Verified 12/12/21 10:18 skin-"paper tape is ok" cyclobenzaprine Allergy Nausea & Verified 12/12/21 10:18 [From Flexeril] Vomiting,hives latex Allergy tears skin Verified 12/12/21 10:18 Physical Exam Vitals: Vital Signs Temp Pulse Pulse Resp BP BP Pulse Ox 12/13/21 07:35 98.4 F 86 18 130/77 97 12/13/21 04:00 98.8 F 85 18 120/71 95 12/13/21 00:00 98.5 F 88 16 115/66 97 12/12/21 21:35 98.2 F 77 18 119/66 99 12/12/21 19:45 85 17 107/65 96 12/12/21 19:15 50 L 16 120/59 99 12/12/21 18:44 98.3 F 53 L 121/69 97 12/12/21 18:18 98.3 F 53 L 121/69 98 12/12/21 16:45 79 76 H 123/58 123/46 94 L 12/12/21 16:30 73 16 133/71 127/44 99 12/12/21 16:15 72 16 133/73 100 12/12/21 16:03 97.5 F L 78 16 135/61 99 12/12/21 12:36 53 L 16 147/67 100 12/12/21 11:45 65 16 117/58 100 Intake and Output 12/12/21 12/13/21 12/13/21 22:59 06:59 14:59 Intake Total 250 Output Total 1900 1100 Balance -1650 -1100 Intake: IV 250 Output: Drainage 50 Right 50 Urine 1700 1050 Estimated Blood Loss 200 Other: Voiding Method Indwelling Catheter Indwelling Catheter Indwelling Catheter # Voids 1 Weight 71.2 kg Results CBC & Chem 7: 12/12/21 10:30 12/12/21 11:27 Labs: Abnormal Lab Results - Last 24 Hours (Table) 12/12/21 Range/Units 11:27 Chloride 110 H (98-107) mmol/L
[2021-12-14] MEDS: HYDROcodone/APAP 5-325MG 1 EACH TAB PO PRN ×2 (03:08→09:52)
[2021-12-14] MEDS: LEVOTHYROXINE 88 MCG TAB PO SCH (03:08)
[2021-12-14 03:46] VITALS: RESP 17
[2021-12-14 07:42] LABS: Basophils % (A) 1 %; Eosinophils # (A) 0.1 k/uL (0-0.7); Eosinophils % (A) 1 %; HCT 35.9 % (34.0-46.0); HGB 11.6 gm/dL (11.4-16.0); Lymphocytes # (A) 1.4 k/uL (1.0-4.8); Lymphocytes % (A) 22 %; MCH 31.2 pg (25.0-35.0); MCHC 32.3 g/dL (31.0-37.0); MCV 96.4 fL (80.0-100.0); Mean Platelet Volume 9.1; Monocytes # (A) 0.5 k/uL (0-1.0); Monocytes % (A) 8 %; Neutrophils # (A) 4.4 k/uL (1.3-7.7); Neutrophils % (A) 68 %; Platelet Count 186 k/uL (150-450); RBC 3.72 m/uL (3.80-5.40); RDW 13.6 % (11.5-15.5); WBC 6.4 k/uL (3.8-10.6)
[2021-12-14 07:50] LABS: Calcium 8.9 mg/dL (8.4-10.2); Potassium 3.7 mmol/L (3.5-5.1)
[2021-12-14] MEDS: ONDANSETRON 4 MG/2 ML VIAL IVP PRN (08:01)
[2021-12-14] MEDS: ATORVASTATIN 40 MG TAB PO SCH (09:39)
[2021-12-14] MEDS: DOCUSATE 100 MG CAP PO SCH (09:39)
[2021-12-14] MEDS: clonazePAM 0.5 MG TAB PO SCH (09:40)
[2021-12-14] MEDS: miSOPROStoL 200 MCG TAB PO SCH (09:40)
[2021-12-14] MEDS: FERROUS SULFATE 325 MG TAB PO SCH (09:40)
[2021-12-14] MEDS: FAMOTIDINE 20 MG TAB PO SCH (11:52)
[2021-12-14 11:54] VITALS: BP 147/73; PULSE 62; TEMP 98.2
--- NOTE | 2021-12-14 12:17 | P.DS ---
Providers Date of admission: 12/12/21 09:56 Attending physician: El Garrett DO Consults: 12/12/21 15:36 Consult Physician Routine Consulting Provider: Robby Crawford Consult Reason/Comments: med management, post op aneurysm repair Do you want consulting provider notified?: Yes Primary care physician: [facility] Course: Patient is a 61-year-old female who came in on 12/12/2021 for repair of right femoral pseudoaneurysm which she underwent this without issue. She has been active. The drain has minimal output. There was some malfunctioning of the incisional VAC therefore was removed and a simple dressing was placed. The drain was left in place and the patient was taught how to use it. She'll be sent home as she is found be in satisfactory condition for discharge. Plan - Discharge Summary Discharge Rx Participant: No New Discharge Prescriptions: No Action Ferrous Sulfate [Feosol] 325 mg PO DAILY clonazePAM [KlonoPIN] 0.5 mg PO BID HYDROcodone/APAP 10-325MG [[place] 10-325] 1 tab PO Q4-6H PRN PRN Reason: Pain Atorvastatin [Lipitor] 40 mg PO DAILY Levothyroxine Sodium [Synthroid] 88 mcg PO 0300 miSOPROStoL [Cytotec] 200 mcg PO QAM Apixaban [Eliquis] 10 mg PO BID 90 Days tab Docusate Sodium [Dok] 100 mg PO DAILY tiZANidine [Zanaflex] 2 mg PO Q8HR PRN PRN Reason: Spasms Famotidine [Pepcid] 20 mg PO 1200 Discharge Medication List Atorvastatin [Lipitor] 40 mg PO DAILY 03/28/20 [History] Ferrous Sulfate [Feosol] 325 mg PO DAILY 03/28/20 [History] HYDROcodone/APAP 10-325MG [[place] 10-325] 1 tab PO Q4-6H PRN 03/28/20 [History] Levothyroxine Sodium [Synthroid] 88 mcg PO 0300 03/28/20 [History] clonazePAM [KlonoPIN] 0.5 mg PO BID 03/28/20 [History] miSOPROStoL [Cytotec] 200 mcg PO QAM 03/28/20 [History] tiZANidine [Zanaflex] 2 mg PO Q8HR PRN 06/12/21 [History] Apixaban [Eliquis] 10 mg PO BID 90 Days tab 06/25/21 [Rx] Docusate Sodium [Dok] 100 mg PO DAILY 12/11/21 [History] Famotidine [Pepcid] 20 mg PO 1200 12/11/21 [History] Follow up Appointment(s)/Referral(s): Titus Chicas MD [Primary Care Provider] - 1 Week El Garrett DO [STAFF PHYSICIAN] - 1 Week Patient Instructions/Handouts: Pseudoaneurysm (GEN)
--- NOTE | 2021-12-14 18:11 | P.PN ---
Progress Note - Text Progress Note Date: 12/14/21 - Chief Complaint Aneurysm repair - History of Present Illness This is a pleasant 61-year-old patient, follows with Dr. Titus Chicas. Chronic stable medical conditions includes atrial fibrillation, hyperlipidemia, osteoarthritis, obstructive sleep apnea, hypothyroid. Does use a CPAP machine. Herniated disc of the neck. ADHD. On 06/17/2021 patient underwent ablation by Dr. Delvin Michelle. 4 outflow tract PVCs greater than 20%. Patient has successful ablation several years ago. Following that patient developed a pseudoaneurysm 5 cm x 2.9 cm x 2.5 cm. Subsequent computed tomography scan showed a extensive right-sided retroperitoneal and extra pectoral hematoma. Subsequently Dr. Torres from intervention radiology ultrasound-guided thrombin injection. Subsequent ultrasound showed her to be thrombosed. On June 20. 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 Also I'll 3.1 cm on enhancing soft tissue density near by. Patient had subsequently followed up in the office with a bulge and discomfort in the groin and this in some above CT was done. She also complaining of swelling of the right groin area. Patient yesterday underwent right femoral artery pseudoaneurysm repair and compression of the right femoral vein was decreased. This morning patient has a Hemovac in place. And a wound VAC. About 50 mL per shift. Patient did vomit once last night after eating fish. This morning feeling better. Not too happy about the breakfast served to her. No chest pain or shortness of breath. December 13: Up and about. Is being sent home with Hemovac. Wound VAC discontinued. Minimal pain in the right groin. No right leg numbness or tenderness discussed patient. Eliquis resumed by vascular Current medications reviewed Past medical history to include: Atrial fibrillation, hyperlipidemia, frequent PVCs, but ablation, OR sleep apnea with CPAP, hypothyroid, herniated disc in the neck, ADHD, anxiety, Social history: *Smoke in the age of 7 stopped at age of 35 2 packs a day. Quit drinking excessive alcohol in 1990. In the past to do cocaine and marijuana. Does and ALT marijuana once or twice per week. CBD on hands daily. Family history: Breast cancer Physical examination: VITAL SIGNS: 98.2, 62, 17, 147/73, 96% room air GENERAL: Sitting up comfortable EYES: Pupils equal. Conjunctiva normal. HEENT: External appearance of nose and ears normal, oral cavity grossly normal. NECK: JVD not raised; masses not palpable. HEART: First and second heart sounds are normal; no edema. LUNGS: Respiratory rate normal; decreased breath sound. ABDOMEN: Soft, nontender, liver spleen not palpable, no masses palpable. Right groin - Hemovac. PSYCH: Alert and oriented x3; mood and affect some anxietyl. MUSCULOSKELETAL:No Clubbing/cyanosis;muscles-grossly intact INVESTIGATIONS, reviewed in the clinical context: December 14: White count 6.4 hemoglobin 11.6 potassium 3.7 creatinine 0.91 White count 5.5, hemoglobin 12.2 platelets 231 potassium 4 creatinine 0.9 Assessment and plan: -Repair of large pseudoaneurysm of the right femoral artery, from prior right groin access for ablation in June 2021. Wound VAC discontinued. Hemovac will continue at home -Paroxysmal atrial fibrillation, status post ablation: Currently sinus rhythm Eliquis resumed by vascular -Multiple PVCs on telemetry -Hyperlipidemia Lipitor 40 mg -GERD Pepcid -Hypothyroid Synthroid 88 g a day -Anxiety not otherwise specified Klonopin 0.5 mg twice a day Patient to follow-up with Dr. Chicas upon discharge
== END 2021-12-14 13:43 | disposition home or self-care (01) | DRG 253 ==
LOC: 2ORMAIN 09:56 → 3SCARD 17:08
PROVIDERS: ADMIT Surgery; ATTEND Surgery
PROC: 0Y3C0ZZ Control Bleeding in Right Upper Leg, Open Approach (ICD-10-PCS; 2021-12-12)
PROC: 2W1QX7Z Compression of Right Lower Leg using Intermittent Pressure Device (ICD-10-PCS; 2021-12-12)
PROC: 04QK0ZZ Repair Right Femoral Artery, Open Approach (ICD-10-PCS; principal; 2021-12-12 11:45)
DX: I72.4 Aneurysm of artery of lower extremity (principal); I87.1 Compression of vein; E03.9 Hypothyroidism, unspecified; E78.5 Hyperlipidemia, unspecified; F41.0 Panic disorder [episodic paroxysmal anxiety]; F90.9 Attention-deficit hyperactivity disorder, unspecified type; M50.20 Other cervical disc displacement, unspecified cervical region; F41.9 Anxiety disorder, unspecified; G47.33 Obstructive sleep apnea (adult) (pediatric); I48.0 Paroxysmal atrial fibrillation; I49.3 Ventricular premature depolarization; K21.9 Gastro-esophageal reflux disease without esophagitis; M19.90 Unspecified osteoarthritis, unspecified site; Z79.890 Hormone replacement therapy; Z79.01 Long term (current) use of anticoagulants; Z79.899 Other long term (current) drug therapy; Z80.3 Family history of malignant neoplasm of breast; Z87.891 Personal history of nicotine dependence; Z91.041 Radiographic dye allergy status; Z88.8 Allergy status to other drugs, medicaments and biological substances; Z91.040 Latex allergy status; Z89.411 Acquired absence of right great toe; Z86.59 Personal history of other mental and behavioral disorders
CPT/HCPCS: 80048; 80053; 85025; 86850; 86900; 86901; 88304; 88305